=== PATIENT | male | born 1950 | race American Indian/Alaskan Native ===

== ENCOUNTER 2020-10-14 05:19 | Inpatient (IN) | payer MEDICARE, OTHER ==
[2020-10-14] MEDS ORDERED: DEXTROSE 50% IN WATER (25GM) 50 ML SYRINGE IV ONE ×2 (05:30→05:42)
--- NOTE | 2020-10-14 05:44 | Event Note ---
ED Screening Note Date of service: 10/14/20 Time: 05:44 ED Screening Note: This initial assessment/diagnostic orders/clinical plan/treatment(s) is/are subject to change based on patients health status, clinical progression and re- assessment by fellow clinical providers in the ED. Further treatment and workup at subsequent clinical providers discretion. Patient/guardian urged not to elope from the ED as their condition may be serious if not clinically assessed and managed. Patient brought in for altered mental status. Blood glucose of 29. Given D50. Initial orders include: repeat accucheck
--- NOTE | 2020-10-14 06:11 | Emergency Department Report ---
HPI - General Chief Complaint: Altered Mental Status Time Seen by Provider: 10/14/20 06:01 - HPI HPI: This is a 70-year-old -[place] male who presents to the emergency department, via EMS from [facility], with a complaint of altered mental status. This patient is unknown to me and has never been at the facility previously, and EMS is unable to tell us what his normal baseline mental status is. Patient came in prior to my shift starting and was apparently rather drowsy. He was found to have a blood sugar of 29 and given an amp of D50. At the time of my examination the patient is AAO x1, to person only. When asked if he knows where we are right now, the patient says [place] He has a list of past medical history including chronic atrial fibrillation, hypertension, hypothyroidism, diabetes, CHF, previous DVT, urinary retention, BPH, thrombocytopenia. The patient has an indwelling Nuno catheter. ED Past Medical Hx - Past Medical History Hx Hypertension: Yes Hx Congestive Heart Failure: Yes Hx Diabetes: Yes Hx Deep Vein Thrombosis: Yes Additional medical history: Acute respiratory failure with hypoxia, chronic A. Fib, difficulty walking, Hyperthyroidism, generalized muscle weakness, sepsis, V. Tach, BPH, COVID-19, Hypo-osmolality and Hyponatremia, indwelling urinary catheter, repeated falls, thrombocytopenia, chronic UTI's - Surgical History Additional Surgical History: unknown - Social History Smoking Status: Never Smoker Substance Use Type: None ED Review of Systems ROS: Stated complaint: AMS Other details as noted in HPI Comment: Unobtainable due to pts medical conditions Physical Exam - Physical Exam Vital Signs: Vital Signs 10/14/20 10/14/20 10/14/20 05:29 05:31 05:34 Temperature 98.9 F Pulse Rate 92 H 87 Respiratory 26 H 27 H Rate Blood Pressure 120/79 120/79 O2 Sat by Pulse 100 100 Oximetry 10/14/20 10/14/20 05:45 05:57 Temperature Pulse Rate 91 H 88 Respiratory 25 H 19 Rate Blood Pressure 129/81 119/82 O2 Sat by Pulse 94 99 Oximetry Physical Exam: GENERAL: The patient is well-developed well-nourished. HENT: Normocephalic. Atraumatic. Patient has moist mucous membranes. EYES: Extraocular motions are intact. NECK: Supple. Trachea is midline. CHEST/LUNGS: Clear to auscultation. There is no respiratory distress noted. HEART/CARDIOVASCULAR: Regular. There is no tachycardia. There is no murmur. ABDOMEN: Abdomen is soft, nontender. Patient has normal bowel sounds. There is no abdominal distention. SKIN: Skin is warm and dry. 1-2+ pitting edema to the bilateral lower extrem ities and lower abdomen. NEURO: The patient is awake, alert, and cooperative. Confused, AAO x1 to name only. Normal speech. MUSCULOSKELETAL: There is no tenderness or deformity. : Nuno catheter in place. ED Course Vital Signs 10/14/20 10/14/20 10/14/20 05:29 05:31 05:34 Temperature 98.9 F Pulse Rate 92 H 87 Respiratory 26 H 27 H Rate Blood Pressure 120/79 120/79 O2 Sat by Pulse 100 100 Oximetry 10/14/20 10/14/20 05:45 05:57 Temperature Pulse Rate 91 H 88 Respiratory 25 H 19 Rate Blood Pressure 129/81 119/82 O2 Sat by Pulse 94 99 Oximetry ED Medical Decision Making - Lab Data Result diagrams: 10/14/20 07:06 10/14/20 07:06 Lab Results 10/14/20 10/14/20 10/14/20 Range/Units 05:26 06:13 07:06 WBC 8.7 (4.5-11.0) K/mm3 RBC 3.61 L (3.65-5.03) M/mm3 Hgb 11.9 (11.8-15.2) gm/dl Hct 36.4 (35.5-45.6) % MCV 101 H (84-94) fl MCH 33 H (28-32) pg MCHC 33 (32-34) % RDW 18.1 H (13.2-15.2) % Plt Count 161 (140-440) K/mm3 Lymph % (Auto) Manager Utilization Management Grayson % (Auto) Manager Utilization Management Eos % (Auto) Manager Utilization Management Baso % (Auto) Manager Utilization Management Lymph # (Auto) Manager Utilization Management Grayson # (Auto) Manager Utilization Management Eos # (Auto) Manager Utilization Management Baso # (Auto) Manager Utilization Management Seg Neutrophils % Manager Utilization Management Seg Neutrophils # Manager Utilization Management PT (12.2-14.9) Sec. INR (0.87-1.13) Sodium (137-145) mmol/L Potassium (3.6-5.0) mmol/L Chloride (98-107) mmol/L Carbon Dioxide (22-30) mmol/L Anion Gap mmol/L BUN (9-20) mg/dL Creatinine (0.8-1.3) mg/dL Estimated GFR ml/min BUN/Creatinine Ratio % Glucose (75-100) mg/dL POC Glucose 29 L 83 (70-105) mg/dL Calcium (8.4-10.2) mg/dL Total Bilirubin (0.1-1.2) mg/dL AST (5-40) units/L ALT (7-56) units/L Alkaline Phosphatase (35-129) units/L Ammonia (25-60) umol/L Troponin T (0.00-0.029) ng/mL NT-Pro-B Natriuret Pep (0-900) pg/mL Total Protein (6.3-8.2) g/dL Albumin (3.9-5) g/dL Albumin/Globulin Ratio % Triglycerides (2-149) mg/dL Cholesterol (50-199) mg/dL LDL Cholesterol Direct (50-130) mg/dL HDL Cholesterol (40-59) mg/dL Cholesterol/HDL Ratio % TSH (0.270-4.200) mlU/mL Plasma/Serum Alcohol (0-0.07) % 10/14/20 10/14/20 10/14/20 Range/Units 07:06 07:06 07:06 WBC (4.5-11.0) K/mm3 RBC (3.65-5.03) M/mm3 Hgb (11.8-15.2) gm/dl Hct (35.5-45.6) % MCV (84-94) fl MCH (28-32) pg MCHC (32-34) % RDW (13.2-15.2) % Plt Count (140-440) K/mm3 Lymph % (Auto) Grayson % (Auto) Eos % (Auto) Baso % (Auto) Lymph # (Auto) Grayson # (Auto) Eos # (Auto) Baso # (Auto) Seg Neutrophils % Seg Neutrophils # PT 20.7 H (12.2-14.9) Sec. INR 1.73 H (0.87-1.13) Sodium 135 L (137-145) mmol/L Potassium 4.2 (3.6-5.0) mmol/L Chloride 100.1 (98-107) mmol/L Carbon Dioxide 21 L (22-30) mmol/L Anion Gap 18 mmol/L BUN 16 (9-20) mg/dL Creatinine 0.8 (0.8-1.3) mg/dL Estimated GFR > 60 ml/min BUN/Creatinine Ratio 20 % Glucose 75 (75-100) mg/dL POC Glucose (70-105) mg/dL Calcium 8.7 (8.4-10.2) mg/dL Total Bilirubin 4.10 H (0.1-1.2) mg/dL AST 27 (5-40) units/L ALT 9 (7-56) units/L Alkaline Phosphatase 200 H (35-129) units/L Ammonia 25.0 (25-60) umol/L Troponin T 0.053 H (0.00-0.029) ng/mL NT-Pro-B Natriuret Pep (0-900) pg/mL Total Protein 6.3 (6.3-8.2) g/dL Albumin 3.0 L (3.9-5) g/dL Albumin/Globulin Ratio 0.9 % Triglycerides 45 (2-149) mg/dL Cholesterol 122 (50-199) mg/dL LDL Cholesterol Direct 76 (50-130) mg/dL HDL Cholesterol 42 (40-59) mg/dL Cholesterol/HDL Ratio 2.90 % TSH (0.270-4.200) mlU/mL Plasma/Serum Alcohol (0-0.07) % 10/14/20 10/14/20 10/14/20 Range/Units 07:06 07:06 07:06 WBC (4.5-11.0) K/mm3 RBC (3.65-5.03) M/mm3 Hgb (11.8-15.2) gm/dl Hct (35.5-45.6) % MCV (84-94) fl MCH (28-32) pg MCHC (32-34) % RDW (13.2-15.2) % Plt Count (140-440) K/mm3 Lymph % (Auto) Grayson % (Auto) Eos % (Auto) Baso % (Auto) Lymph # (Auto) Grayson # (Auto) Eos # (Auto) Baso # (Auto) Seg Neutrophils % Seg Neutrophils # PT (12.2-14.9) Sec. INR (0.87-1.13) Sodium (137-145) mmol/L Potassium (3.6-5.0) mmol/L Chloride (98-107) mmol/L Carbon Dioxide (22-30) mmol/L Anion Gap mmol/L BUN (9-20) mg/dL Creatinine (0.8-1.3) mg/dL Estimated GFR ml/min BUN/Creatinine Ratio % Glucose (75-100) mg/dL POC Glucose (70-105) mg/dL Calcium (8.4-10.2) mg/dL Total Bilirubin (0.1-1.2) mg/dL AST (5-40) units/L ALT (7-56) units/L Alkaline Phosphatase (35-129) units/L Ammonia (25-60) umol/L Troponin T (0.00-0.029) ng/mL NT-Pro-B Natriuret Pep 56497 H (0-900) pg/mL Total Protein (6.3-8.2) g/dL Albumin (3.9-5) g/dL Albumin/Globulin Ratio % Triglycerides (2-149) mg/dL Cholesterol (50-199) mg/dL LDL Cholesterol Direct (50-130) mg/dL HDL Cholesterol (40-59) mg/dL Cholesterol/HDL Ratio % TSH 11.470 H (0.270-4.200) mlU/mL Plasma/Serum Alcohol < 0.01 (0-0.07) % - EKG Data -: EKG Interpreted by Me EKG shows normal: sinus rhythm, axis (Left axis deviation), intervals, QRS complexes, ST-T waves (Flattening of T waves diffusely) Rate: normal - EKG Data When compared to previous EKG there are: previous EKG unavailable Interpretation: other (Sinus rhythm at 85 bpm, left axis deviation, low voltage, T wave flattening diffusely. No ST elevation AK) - Radiology Data Radiology results: report reviewed, image reviewed interpreted by me: Chest x-ray shows bilateral patchy opacities most consistent with some interstitial edema. No pneumothorax. No widened mediastinum. CT head without contrast INDICATION : Altered mental status TECHNIQUE: Axial imaging performed from the skull apex through the skull base without the use of contrast. All CT examinations performed at this facility utilize dose modulation, iterative reconstruction or weight-based dosing, when appropriate, to reduce radiation dose to as low as reasonably achievable. COMPARISON: None FINDINGS: No acute intracranial hemorrhage or parenchymal abnormality. Diffuse cerebral atrophy with prominent periventricular white matter changes. Ventricles are slightly enlarged in size but appear symmetric. Soft tissues including the orbits appear normal. No acute osseous abnormality. Sinuses and mastoid air cells are clear. IMPRESSION: No acute abnormality. - Medical Decision Making This patient was sent in from his long term facility with concern for some altered mental status. Initially the patient had pretty significant hypoglycemia with a blood sugar of about 30. He was given glucagon by EMS and then D50 upon arrival and the blood sugar went up to about 80. This helped with the patient's alertness, but not with his confusion and/or orientation. CT scan of the head did not show any hemorrhage, large vessel occlusion, or any other acute processes. Chest x-ray shows bilateral patchy opacities concerning for interstitial edema. No widened mediastinum. No pneumothorax. Patient's labs shows hypothyroidism. He has elevated total bilirubin, alk phosphatase, and an INR without known anticoagulation. This gives me some c oncern for liver disease. The patient has an elevated proBNP of about 15,000, that along with the chest x-ray findings and the swelling of his extremities and abdomen, is concerning for CHF. Patient has a slightly elevated troponin. For these reasons patient will be admitted to the hospital for further evaluation and treatment and was accepted for admission by the hospitalist, Dr. Pereira. Critical Care Time: Yes Critical care time in (mins) excluding proc time.: 31 Critical care attestation.: If time is entered above; I have spent that time in minutes in the direct care of this critically ill patient, excluding procedure time. Critical care time was spent on this patient in doing his initial evaluation, multiple reevaluations, ordering and interpretation of labs and imaging, IV Lasix for diuresis, discussions with the hospitalist service. Critical Care Time: 31 minutes ED Disposition Clinical Impression: Encephalopathy, Elevated troponin, Elevated bilirubin CHF (congestive heart failure) Qualifiers: Heart failure type: unspecified Heart failure chronicity: unspecified Qualified Code(s): I50.9 - Heart failure, unspecified Disposition: OP ADMIT IP TO THIS HOSP Is pt being admited?: Yes Condition: Serious Time of Disposition: 09:20
--- NOTE | 2020-10-14 06:39 | XRay Report ---
CHEST 1 VIEW INDICATION / CLINICAL INFORMATION: AMS, volume overload. FINDINGS: SUPPORT DEVICES: None. HEART / MEDIASTINUM: Cardiomegaly. LUNGS / PLEURA: Mild interstitial edema. Bilateral pleural effusions, right greater than left Signer Name: Kaden Yen MD Signed: 10/14/2020 6:35 AM Workstation Name: [id number]
--- NOTE | 2020-10-14 07:06 | Cat Scan Report ---
CT head without contrast INDICATION : Altered mental status TECHNIQUE: Axial imaging performed from the skull apex through the skull base without the use of con trast. All CT examinations performed at this facility utilize dose modulation, iterative reconstruct ion or weight-based dosing, when appropriate, to reduce radiation dose to as low as reasonably achiev able. COMPARISON: None FINDINGS: No acute intracranial hemorrhage or parenchymal abnormality. Diffuse cerebral atrophy with prominent periventricular white matter changes. Ventricles are slightly enlarged in size but appear symmetric. Soft tissues including the orbits appear normal. No acute osseous abnormality. Sinus es and mastoid air cells are clear. IMPRESSION: No acute abnormality. Signer Name: Kaden Yen MD Signed: 10/14/2020 7:02 AM Workstation Name: [id number]
[2020-10-14 08:05] LABS: INR 1.73 (0.87-1.13)
[2020-10-14 08:12] LABS: Alanine Aminotransferase 9 units/L (7-56); BUN/Creatinine Ratio 20; Blood Urea Nitrogen 16 mg/dL (9-20); Calcium 8.7 mg/dL (8.4-10.2); Hemolysis Index 41
[2020-10-14 08:18] LABS: Hematocrit 36.4 % (35.5-45.6); Hemoglobin 11.9 gm/dl (11.8-15.2); Mean Corpuscular HGB Conc 33 % (32-34); Mean Corpuscular Volume 101 fl (84-94); Platelet Count 161 K/mm3 (140-440); Red Blood Count 3.61 M/mm3 (3.65-5.03); Red Cell Distribution Width 18.1 % (13.2-15.2)
[2020-10-14] MEDS ORDERED: FUROSEMIDE 20 MG/2 ML INJ IV ONE (09:21)
[2020-10-14 09:22] LABS: HDL Cholesterol 42 mg/dL (40-59); LDL Cholesterol,Direct 76 mg/dL (50-130)
--- NOTE | 2020-10-14 13:45 | History and Physical Report ---
History of Present Illness Date of examination: 10/14/20 Date of admission: 10/14/20 09:20 Chief complaint: Altered mental status, hypoxia History of present illness: Patient 70-year-old male with a history of dementia, hypothyroidism, atrial fibrillation, congestive heart failure, diabetes, hypertension presents from the nursing facility with a chief complaint of altered mental status hypoxemia and hypotension. Patient has dementia and is usually alert and oriented x2 however today was found to be hypoxic with O2 sats of 88% and also hypotensive with blood pressure 85/62. On presentation to the ED patient was found to also be hypoglycemic at 29. Patient was given D50 and had minimal response and became hypoglycemic several hours later. Upon evaluation in my arrival patient was alert and oriented x2. This is consistent with patient's baseline however he was in the nursing facility. I did speak with the nurse and nursing facility and stated patient has been there since August. There was not a medication sheet sent over during the time however I did go over the medications with the nurse and patient is on albuterol, Eliquis, furosemide, spironolactone, Remeron, levothyroxine metoprolol and glipizide. Initial work-up in ED patient found to have normal sinus rhythm. CT scan of head was obtained was unremarkable and chest x-ray showed mild edema with bilateral pleural effusions. Unable to gain much history from patient patient appears acute and chronically ill. States he is cold. Denies pain. Unable to take gainful history but does able to tell me he is short of breath. His main concern is ' white folks trying to to take me out'. Past History Past Medical History: arrhythmia, anemia, CAD, diabetes, GERD, heart failure, hypertension, hypothyroidism, other (Dementia). denies: acute DC, atrial fib, cancer, COPD, dialysis, DVT, ESRD, hepatitis, HIV/AIDS, hyperthyroidism, hyperlipidemia, liver disease, migraines, PVD, pulmonary embolism, renal failure, stroke, sarcoidosis Past Surgical History: Other (Unknown) Social history: other (Unknown) Family history: other (Unable to obtain) Medications and Allergies Allergies Allergy/AdvReac Type Severity Reaction Status Date / Time No Known Allergies Allergy Verified 10/14/20 06:02 Active Meds: Home medication reviewed over the phone there was no diagnosis doses given. Mentioned in HPI please see HPI. Review of Systems ROS unobtainable: due to mental status Exam - Constitutional Vitals: Temp Pulse Resp BP Pulse Ox 98.9 F 87 16 126/84 96 10/14/20 05:34 10/14/20 07:54 10/14/20 07:54 10/14/20 07:54 10/14/20 07:54 General appearance: Present: mild distress - EENT Eyes: Present: PERRL ENT: hearing intact, clear oral mucosa, poor dentition, no oropharyngeal eryth leonora, no thrush - Respiratory Respiratory: bilateral: diminished, rhonchi - Cardiovascular Rhythm: other (Not irregular at this time.) - Extremities Extremity abnormal: edema (+2 pitting edema), other (Bedbound has range of motion of upper extremities weak on lower extremities.) Peripheral Pulses: abnormal - Abdominal General gastrointestinal: Present: soft, non-tender, other (Slightly distended). Absent: hepatomegaly, splenomegaly Localized gastrointestinal: surgical scar: suprapubic (Suprapubic no tenderness noted. Patient does have dark urine only.) - Rectal Rectal Exam: deferred - Musculoskeletal Musculoskeletal: generalized weakness - Psychiatric Psychiatric: other (Alert and oriented x1 and occasional 2.) - Neurologic Neurologic: CNII-XII intact, no focal deficits, moves all extremities HEART Score - HEART Score History: Moderately suspicious EKG: Non-specific Age: > 65 Risk factors: > 3 risk factors or hx of atherosclerotic disease Troponin: Troponin T 0.053 ng/mL (0.00-0.029) H 10/14/20 07:06 Troponin: 1-3x normal limit HEART Score: 7 Results - Labs CBC & Chem 7: 10/14/20 07:06 10/14/20 07:06 Labs: Laboratory Last Values WBC 8.7 K/mm3 (4.5-11.0) 10/14/20 07:06 RBC 3.61 M/mm3 (3.65-5.03) L 10/14/20 07:06 Hgb 11.9 gm/dl (11.8-15.2) 10/14/20 07:06 Hct 36.4 % (35.5-45.6) 10/14/20 07:06 MCV 101 fl (84-94) H 10/14/20 07:06 MCH 33 pg (28-32) H 10/14/20 07:06 MCHC 33 % (32-34) 10/14/20 07:06 RDW 18.1 % (13.2-15.2) H 10/14/20 07:06 Plt Count 161 K/mm3 (140-440) 10/14/20 07:06 Lymph % (Auto) Chief Physical Therapist 10/14/20 07:06 Parmer % (Auto) Chief Physical Therapist 10/14/20 07:06 Eos % (Auto) Chief Physical Therapist 10/14/20 07:06 Baso % (Auto) Chief Physical Therapist 10/14/20 07:06 Lymph # (Auto) Chief Physical Therapist 10/14/20 07:06 Parmer # (Auto) Chief Physical Therapist 10/14/20 07:06 Eos # (Auto) Chief Physical Therapist 10/14/20 07:06 Baso # (Auto) Chief Physical Therapist 10/14/20 07:06 Seg Neutrophils % Chief Physical Therapist 10/14/20 07:06 Seg Neutrophils # Chief Physical Therapist 10/14/20 07:06 PT 20.7 Sec. (12.2-14.9) H 10/14/20 07:06 INR 1.73 (0.87-1.13) H 10/14/20 07:06 Sodium 135 mmol/L (137-145) L 10/14/20 07:06 Potassium 4.2 mmol/L (3.6-5.0) 10/14/20 07:06 Chloride 100.1 mmol/L (98-107) 10/14/20 07:06 Carbon Dioxide 21 mmol/L (22-30) L 10/14/20 07:06 Anion Gap 18 mmol/L 10/14/20 07:06 BUN 16 mg/dL (9-20) 10/14/20 07:06 Creatinine 0.8 mg/dL (0.8-1.3) 10/14/20 07:06 Estimated GFR > 60 ml/min 10/14/20 07:06 BUN/Creatinine Ratio 20 % 10/14/20 07:06 Glucose 75 mg/dL (75-100) 10/14/20 07:06 POC Glucose 85 mg/dL (70-105) 10/14/20 13:22 Calcium 8.7 mg/dL (8.4-10.2) 10/14/20 07:06 Total Bilirubin 4.10 mg/dL (0.1-1.2) H 10/14/20 07:06 AST 27 units/L (5-40) 10/14/20 07:06 ALT 9 units/L (7-56) 10/14/20 07:06 Alkaline Phosphatase 200 units/L (35-129) H 10/14/20 07:06 Ammonia 25.0 umol/L (25-60) 10/14/20 07:06 Troponin T 0.053 ng/mL (0.00-0.029) H 10/14/20 07:06 NT-Pro-B Natriuret Pep 04742 pg/mL (0-900) H 10/14/20 07:06 Total Protein 6.3 g/dL (6.3-8.2) 10/14/20 07:06 Albumin 3.0 g/dL (3.9-5) L 10/14/20 07:06 Albumin/Globulin Ratio 0.9 % 10/14/20 07:06 Triglycerides 45 mg/dL (2-149) 10/14/20 07:06 Cholesterol 122 mg/dL (50-199) 10/14/20 07:06 LDL Cholesterol Direct 76 mg/dL (50-130) 10/14/20 07:06 HDL Cholesterol 42 mg/dL (40-59) 10/14/20 07:06 Cholesterol/HDL Ratio 2.90 % 10/14/20 07:06 TSH 11.470 mlU/mL (0.270-4.200) H 10/14/20 07:06 Plasma/Serum Alcohol < 0.01 % (0-0.07) 10/14/20 07:06 - Imaging and Cardiology Chest x-ray: report reviewed, image reviewed Assessment and Plan Advance Directives: Yes (Patient not oriented will talk to family.) VTE prophylaxis?: Chemical, Not ordered Contraindication Mechanical VTE Prophylaxis: Contraindicated Reason for no VTE Prophylaxis: Blood coagulation disorde Plan of care discussed with patient/family: Yes - Patient Problems (1) Hypothyroidism (acquired) Current Visit: Yes Status: Acute Plan to address problem: Patient presents with uncontrolled hypothyroidism. Patient has been there for over a month. TSH uncontrolled none therapeutic at 11. Will increase Synthroid to 125 mcg daily. Patient shows signs and symptoms of uncontrolled hyperthyroidism with hypothermia hypotension. (2) CHF (congestive heart failure) Current Visit: Yes Status: Acute Plan to address problem: Acute congestive heart failure. Patient with bilateral pulmonary effusions. BNP elevated. Symptoms of left-sided heart failure on physical exam. Patient new to facility new to us. No recent echocardiogram as we know per myself or nursing facility or family. Will obtain repeat echocardiogram. Continue aggressive diuresis with Lasix IV. We will add spironolactone upon discharge if patient tolerates. At present patient denies chest pain. Just shortness of breath and appears to have some orthopnea as well. (3) Elevated bilirubin Current Visit: Yes Status: Acute Plan to address problem: Elevated alk phos. Patient bili normal. Unsure of exact etiology. Could be shock liver. Will follow up with liver enzymes alk phos again tomorrow. May be lab error as well. (4) Elevated troponin Current Visit: Yes Status: Acute Plan to address problem: Elevated troponin we will continue cardiac isoenzymes. Cardiology consult. Echocardiogram. No acute EKG changes consistent with acute myocardial infarction. (5) Encephalopathy Current Visit: Yes Status: Acute Plan to address problem: Acute metabolic encephalopathy. Multifactorial. Patient hypoxic along with hypoglycemia and uncontrolled hypothyroidism with advanced age and most likely UTI. Urine has not been obtained in ED will obtain urine now. This also could be playing some role will empirically treat him with antibiotics now. Rocephin. Will obtain blood cultures. (6) Diabetes 1.5, managed as type 2 Current Visit: Yes Status: Acute (7) Hypoglycemia Current Visit: Yes Status: Acute Plan to address problem: We will hold oral hypoglycemic medications and treat with sliding scale only for now. Place patient on low concentrated sweet diet carbohydrate diet. (8) SIRS (systemic inflammatory response syndrome) Current Visit: Yes Status: Acute Plan to address problem: Patient hypotensive, altered mental status. Hypoglycemic. Empiric treatment with antibiotics Rocephin. Patient with indwelling Nuno catheter most likely source. (9) Atrial fibrillation Current Visit: Yes Status: Acute Plan to address problem: Patient is regular today. We will continue Eliquis because I have no way of knowing the patient was not previously in A. fib. We will continue Eliquis for now. Further titration of medications when for cardiac work-up has been completed.
[2020-10-14] MEDS ORDERED: ALPRAZolam 0.25 MG TAB PO PRN (13:56)
[2020-10-14] MEDS ORDERED: MORPHINE 2 MG/1 ML INJ IV PRN (13:56)
[2020-10-14] MEDS ORDERED: ONDANSETRON 4 MG/2 ML INJ IV PRN (13:56)
[2020-10-14] MEDS ORDERED: ALBUTEROL 2.5 MG/3 ML NEBU IH PRN (13:56)
[2020-10-14] MEDS ORDERED: NALOXONE 0.4 MG/1 ML INJ IV PRN (13:56)
[2020-10-14] MEDS: APIXABAN 5 MG TAB PO SCH ×2 (15:12→22:19)
[2020-10-14] MEDS: TAMSULOSIN 0.4 MG CAP PO SCH (15:12)
[2020-10-14] MEDS: cefTRIAXone/NS 1 GM/50 ML 1 GM/50 ML BAG IV SCH (15:13)
[2020-10-14] MEDS: POTASSIUM CHLORIDE ER 10 MEQ TAB PO SCH ×2 (15:45→22:19)
[2020-10-14 15:46] LABS: Hematocrit 34.3 % (35.5-45.6); Hemoglobin 11.3 gm/dl (11.8-15.2); Mean Corpuscular HGB Conc 33 % (32-34); Mean Corpuscular Volume 99 fl (84-94); Platelet Count 173 K/mm3 (140-440); Red Blood Count 3.46 M/mm3 (3.65-5.03); Red Cell Distribution Width 18.5 % (13.2-15.2)
[2020-10-14 16:00] LABS: INR 1.59 (0.87-1.13)
[2020-10-14 16:01] LABS: Partial Thromboplastin Time 39.8 Sec. (24.2-36.6)
[2020-10-14] MEDS: INSULIN LISPRO 100 UNIT/ML SUB-Q SCH ×2 (16:23→22:20)
[2020-10-14] MEDS: FUROSEMIDE 20 MG/2 ML INJ IV SCH (17:42)
[2020-10-14] MEDS: FAMOTIDINE 20 MG/2 ML INJ IV SCH (22:19)
[2020-10-14] MEDS: DOCUSATE SODIUM 100 MG CAP PO SCH (22:19)
[2020-10-15] MEDS: FUROSEMIDE 20 MG/2 ML INJ IV SCH ×2 (05:52→17:34)
[2020-10-15] MEDS: LEVOTHYROXINE 125 MCG TAB PO SCH (05:52)
[2020-10-15 06:00] LABS: Basophils % (Auto) 0.9 % (0.0-1.8); Hematocrit 34.6 % (35.5-45.6); Hemoglobin 11.3 gm/dl (11.8-15.2); Lymphocytes % (Auto) 8.6 % (13.4-35.0); Mean Corpuscular HGB Conc 33 % (32-34); Mean Corpuscular Volume 99 fl (84-94); Monocytes % (Auto) 7.5 % (0.0-7.3); Platelet Count 170 K/mm3 (140-440); Red Blood Count 3.51 M/mm3 (3.65-5.03); Red Cell Distribution Width 18.2 % (13.2-15.2)
[2020-10-15 06:25] LABS: Alanine Aminotransferase 8 units/L (7-56); Albumin 3.2 g/dL (3.9-5); BUN/Creatinine Ratio 25; Blood Urea Nitrogen 20 mg/dL (9-20); Calcium 8.2 mg/dL (8.4-10.2); Hemolysis Index 9
[2020-10-15] MEDS: INSULIN LISPRO 100 UNIT/ML SUB-Q SCH ×4 (09:31→21:34)
[2020-10-15] MEDS: POTASSIUM CHLORIDE ER 10 MEQ TAB PO SCH ×2 (09:33→21:34)
[2020-10-15] MEDS: SPIRONOLACTONE 25 MG TAB PO SCH (09:33)
[2020-10-15] MEDS: DOCUSATE SODIUM 100 MG CAP PO SCH ×2 (09:33→21:33)
[2020-10-15] MEDS: APIXABAN 5 MG TAB PO SCH ×2 (09:33→21:34)
[2020-10-15] MEDS: FAMOTIDINE 20 MG/2 ML INJ IV SCH ×2 (09:33→21:33)
[2020-10-15] MEDS: TAMSULOSIN 0.4 MG CAP PO SCH (09:33)
--- NOTE | 2020-10-15 09:51 | Consultation ---
DATE OF CONSULTATION: 10/15/2020 HISTORY OF PRESENT ILLNESS: The patient is a 70-year-old halfway patient, who is confused and unable to give a good history. Right now, he admits to some ankle swelling, but does not describe any other complaints such as chest pain, shortness of breath, palpitations, dizziness, syncope, or claudication. He appears to be bedridden. He has a history of multiple medical problems that include dementia, congestive heart failure, atrial fibrillation, hypothyroidism, hypertension. He has additional medical problems, which can be found in the medical history. He was found to be hypoxic and hypotensive with a blood pressure of 85/62. He had an altered mental status and he was found to have a blood sugar of 29. His past history, cardiac, is unavailable. There are no family members present. He had a chest x-ray in the Emergency Room that showed edema and pleural effusions. PAST MEDICAL HISTORY: Smoking history, unknown. OPERATIONS: Unknown. FAMILY HISTORY: Unknown. Alcohol history, unknown. ALLERGIES: None. REVIEW OF SYSTEMS: No other complaints or medical problems. The patient is disoriented and is unable to give a good history. PHYSICAL EXAMINATION: GENERAL: Well-developed, well-nourished, no acute distress. Alert, cooperative, disoriented. EYES, NOSE AND THROAT: Unremarkable. NECK: Reveals marked JVD. There are no bruits. Supple, no masses. LUNGS: Diminished breath sounds. CARDIAC: Regular rhythm. S4 gallop. Grade II systolic murmur. Suspect S3 gallop. ABDOMEN: Soft, nontender, no masses. Bowel sounds intact. There may be mild ascites. EXTREMITIES: No cyanosis, clubbing. There is 1+ edema. Peripheral pulses are markedly diminished. NEUROLOGIC: Deferred. SKIN: No major rashes or wounds. IMPRESSION: 1. Suspect underlying cardiomyopathy with evidence of congestive heart failure. 2. History of atrial fibrillation and ventricular tachycardia; the patient has been in sinus rhythm in the hospital so far. 3. History of hypertension. 4. History of diabetes, status post hypoglycemia. 5. Dementia. 6. Multiple medical problems as can be seen in the history and physical. PLAN: Conservative therapy for congestive heart failure. Try to obtain previous cardiac records. Echocardiogram. Monitor rhythm. Slowly add PARISH inhibitors and beta blockers. Thank you for this consultation. TID: [id number] RECEIPT: [id number]/KDA
--- NOTE | 2020-10-15 12:18 | Progress Note ---
Assessment and Plan - Patient Problems (1) Hypothyroidism (acquired) Current Visit: Yes Status: Acute (2) CHF (congestive heart failure) Current Visit: Yes Status: Acute Qualifiers: Heart failure type: unspecified Heart failure chronicity: unspecified Qualified Code(s): I50.9 - Heart failure, unspecified (3) Elevated bilirubin Current Visit: Yes Status: Acute (4) Elevated troponin Current Visit: Yes Status: Acute (5) Encephalopathy Current Visit: Yes Status: Acute (6) Diabetes 1.5, managed as type 2 Current Visit: Yes Status: Acute (7) Hypoglycemia Current Visit: Yes Status: Acute (8) SIRS (systemic inflammatory response syndrome) Current Visit: Yes Status: Acute (9) Atrial fibrillation Current Visit: Yes Status: Acute Subjective Date of service: 10/15/20 Principal diagnosis: Acute CHF exacerbation Interval history: Patient 70-year-old male with a history of dementia, hypothyroidism, atrial fibrillation, congestive heart failure, diabetes, hypertension presents from the nursing facility with a chief complaint of altered mental status hypoxemia and hypotension. Patient has dementia and is usually alert and oriented x2 however today was found to be hypoxic with O2 sats of 88% and also hypotensive with blood pressure 85/62. On presentation to the ED patient was found to also be hypoglycemic at 29. Patient was given D50 and had minimal response and became hypoglycemic several hours later. Upon evaluation in my arrival patient was alert and oriented x2. This is consistent with patient's baseline however he was in the nursing facility. I did speak with the nurse and nursing facility and stated patient has been there since August. There was not a medication sheet sent over during the time however I did go over the medications with the nurse and patient is on albuterol, Eliquis, furosemide, spironolactone, Remeron, levothyroxine metoprolol and glipizide. 10/15/2020 -patient doing much better today. Patient is much more alert much more interactive with exam. Appears to be at baseline. Blood glucose also much better controlled no evidence of hypoglycemia. Potassium has remained stable. Clinical patient improved. Objective - Constitutional Vitals: Vital Signs - 12hr 10/15/20 10/15/20 10/15/20 00:49 03:28 06:00 Temperature 97.4 F L Pulse Rate 86 86 Respiratory 16 Rate Blood Pressure 114/74 O2 Sat by Pulse 97 100 Oximetry 10/15/20 10/15/20 10/15/20 07:41 08:03 11:27 Temperature 98.1 F Pulse Rate 87 Respiratory 17 18 Rate Blood Pressure 105/73 O2 Sat by Pulse 100 97 98 Oximetry General appearance: Present: no acute distress - EENT Eyes: PERRL, EOM intact ENT: hearing decreased, poor dentition - Respiratory Respiratory effort: normal Respiratory: bilateral: rales - Cardiovascular Rhythm: other (Remains regular) Extremities: pulses intact, No edema, normal color, Full ROM Extremity abnormal: other (Improving edema.) - Gastrointestinal General gastrointestinal: Present: soft, non-tender, non-distended, normal bowel sounds - Musculoskeletal Musculoskeletal: generalized weakness - Neurologic Neurologic: moves all extremities - Psychiatric Psychiatric: other (Cognitive impairment but much more alert) - Labs CBC & Chem 7: 10/15/20 04:37 10/15/20 04:37 Labs: Abnormal lab results 10/14/20 10/14/20 10/14/20 Range/Units 15:14 15:14 20:25 RBC 3.46 L (3.65-5.03) M/mm3 Hgb 11.3 L (11.8-15.2) gm/dl Hct 34.3 L (35.5-45.6) % MCV 99 H (84-94) fl MCH 33 H (28-32) pg RDW 18.5 H (13.2-15.2) % Lymph % (Auto) (13.4-35.0) % Russell % (Auto) (0.0-7.3) % Seg Neutrophils % (40.0-70.0) % PT 19.4 H (12.2-14.9) Sec. INR 1.59 H (0.87-1.13) APTT 39.8 H (24.2-36.6) Sec. Carbon Dioxide (22-30) mmol/L Glucose (75-100) mg/dL POC Glucose 110 H (70-105) mg/dL Calcium (8.4-10.2) mg/dL Total Bilirubin (0.1-1.2) mg/dL Alkaline Phosphatase (35-129) units/L Total Protein (6.3-8.2) g/dL Albumin (3.9-5) g/dL 10/15/20 10/15/20 10/15/20 Range/Units 04:37 04:37 07:39 RBC 3.51 L (3.65-5.03) M/mm3 Hgb 11.3 L (11.8-15.2) gm/dl Hct 34.6 L (35.5-45.6) % MCV 99 H (84-94) fl MCH (28-32) pg RDW 18.2 H (13.2-15.2) % Lymph % (Auto) 8.6 L (13.4-35.0) % Russell % (Auto) 7.5 H (0.0-7.3) % Seg Neutrophils % 82.0 H (40.0-70.0) % PT (12.2-14.9) Sec. INR (0.87-1.13) APTT (24.2-36.6) Sec. Carbon Dioxide 21 L (22-30) mmol/L Glucose 133 H (75-100) mg/dL POC Glucose 118 H (70-105) mg/dL Calcium 8.2 L (8.4-10.2) mg/dL Total Bilirubin 2.70 H (0.1-1.2) mg/dL Alkaline Phosphatase 195 H (35-129) units/L Total Protein 5.6 L (6.3-8.2) g/dL Albumin 3.2 L (3.9-5) g/dL 10/15/20 Range/Units 12:08 RBC (3.65-5.03) M/mm3 Hgb (11.8-15.2) gm/dl Hct (35.5-45.6) % MCV (84-94) fl MCH (28-32) pg RDW (13.2-15.2) % Lymph % (Auto) (13.4-35.0) % Russell % (Auto) (0.0-7.3) % Seg Neutrophils % (40.0-70.0) % PT (12.2-14.9) Sec. INR (0.87-1.13) APTT (24.2-36.6) Sec. Carbon Dioxide (22-30) mmol/L Glucose (75-100) mg/dL POC Glucose 174 H (70-105) mg/dL Calcium (8.4-10.2) mg/dL Total Bilirubin (0.1-1.2) mg/dL Alkaline Phosphatase (35-129) units/L Total Protein (6.3-8.2) g/dL Albumin (3.9-5) g/dL HEART Score - HEART Score EKG: Non-specific Age: > 65 Risk factors: > 3 risk factors or hx of atherosclerotic disease Troponin: Troponin T 0.053 ng/mL (0.00-0.029) H 10/14/20 07:06 Troponin: 1-3x normal limit
[2020-10-15] MEDS: cefTRIAXone/NS 1 GM/50 ML 1 GM/50 ML BAG IV SCH (14:59)
[2020-10-16] MEDS: FUROSEMIDE 20 MG/2 ML INJ IV SCH ×2 (05:14→18:20)
[2020-10-16] MEDS: LEVOTHYROXINE 125 MCG TAB PO SCH (05:14)
[2020-10-16 05:38] LABS: Hematocrit 34.4 % (35.5-45.6); Hemoglobin 11.3 gm/dl (11.8-15.2); Mean Corpuscular HGB Conc 33 % (32-34); Mean Corpuscular Volume 100 fl (84-94); Platelet Count 166 K/mm3 (140-440); Red Blood Count 3.44 M/mm3 (3.65-5.03); Red Cell Distribution Width 18.5 % (13.2-15.2)
[2020-10-16] MEDS: INSULIN LISPRO 100 UNIT/ML SUB-Q SCH ×4 (07:30→22:38)
[2020-10-16 08:24] LABS: Alanine Aminotransferase 7 units/L (7-56); Albumin 3.2 g/dL (3.9-5); BUN/Creatinine Ratio 21; Blood Urea Nitrogen 19 mg/dL (9-20); Calcium 8.7 mg/dL (8.4-10.2); Hemolysis Index 1
[2020-10-16] MEDS: APIXABAN 5 MG TAB PO SCH ×2 (10:10→22:37)
[2020-10-16] MEDS: DOCUSATE SODIUM 100 MG CAP PO SCH ×2 (10:11→22:37)
[2020-10-16] MEDS: TAMSULOSIN 0.4 MG CAP PO SCH (10:11)
[2020-10-16] MEDS: SPIRONOLACTONE 25 MG TAB PO SCH (10:11)
[2020-10-16] MEDS: POTASSIUM CHLORIDE ER 10 MEQ TAB PO SCH ×2 (10:11→22:37)
[2020-10-16] MEDS: FAMOTIDINE 20 MG/2 ML INJ IV SCH ×2 (10:11→22:38)
--- NOTE | 2020-10-16 10:57 | Progress Note ---
Assessment and Plan - Patient Problems (1) Atrial fibrillation Current Visit: Yes Status: Acute (2) CHF (congestive heart failure) Current Visit: Yes Status: Acute Qualifiers: Heart failure type: unspecified Heart failure chronicity: unspecified Qualified Code(s): I50.9 - Heart failure, unspecified (3) Diabetes 1.5, managed as type 2 Current Visit: Yes Status: Acute (4) Elevated bilirubin Current Visit: Yes Status: Acute Subjective Date of service: 10/16/20 Principal diagnosis: Acute CHF exacerbation Interval history: NO C/O,,,CONFUSED Objective Vital Signs Temp Pulse Resp BP Pulse Ox 10/16/20 09:22 96 10/16/20 07:35 98.3 F 86 18 101/68 100 10/16/20 06:00 85 10/16/20 03:41 98.2 F 94 H 18 109/72 98 10/15/20 23:18 97.4 F L 53 L 18 111/73 98 10/15/20 22:00 97 H 10/15/20 21:50 100 10/15/20 20:37 20 98 10/15/20 19:20 97.4 F L 96 H 19 110/72 100 10/15/20 16:11 98.0 F 98 H 18 114/72 99 10/15/20 14:00 85 10/15/20 12:09 98.0 F 97 H 18 113/74 93 10/15/20 11:27 18 98 - Physical Examination General: No Apparent Distress Neck: Positive: JVD/HJR Cardiac: Positive: Irregularly Regular Lungs: Positive: Rhonchi Abdomen: Positive: Soft, Tender (NO) Extremities: Present: +1 Edema, Other (DIM. PULSES) - Labs and Meds Cardiac Enzymes 10/16/20 Range/Units 07:44 AST 17 (5-40) units/L CBC 10/16/20 Range/Units 04:29 WBC 7.5 (4.5-11.0) K/mm3 RBC 3.44 L (3.65-5.03) M/mm3 Hgb 11.3 L (11.8-15.2) gm/dl Hct 34.4 L (35.5-45.6) % Plt Count 166 (140-440) K/mm3 Comprehensive Metabolic Panel 10/16/20 Range/Units 07:44 Sodium 139 (137-145) mmol/L Potassium 4.0 (3.6-5.0) mmol/L Chloride 101.1 (98-107) mmol/L Carbon Dioxide 31 H D (22-30) mmol/L BUN 19 (9-20) mg/dL Creatinine 0.9 (0.8-1.3) mg/dL Glucose 109 H (75-100) mg/dL Calcium 8.7 (8.4-10.2) mg/dL AST 17 (5-40) units/L ALT 7 (7-56) units/L Alkaline Phosphatase 178 H (35-129) units/L Total Protein 5.9 L (6.3-8.2) g/dL Albumin 3.2 L (3.9-5) g/dL
--- NOTE | 2020-10-16 12:25 | Progress Note ---
Assessment and Plan - Patient Problems (1) Hypothyroidism (acquired) Current Visit: Yes Status: Acute Plan to address problem: Patient presents with uncontrolled hypothyroidism. Patient has been there for over a month. TSH uncontrolled none therapeutic at 11. Will increase Synthroid to 125 mcg daily. Patient shows signs and symptoms of uncontrolled hyperthyroidism with hypothermia hypotension. Stable continue Synthroid. (2) CHF (congestive heart failure) Current Visit: Yes Status: Acute Qualifiers: Heart failure type: unspecified Heart failure chronicity: unspecified Qualified Code(s): I50.9 - Heart failure, unspecified Plan to address problem: Acute congestive heart failure. Patient with bilateral pulmonary effusions. BNP elevated. Symptoms of left-sided heart failure on physical exam. Patient new to facility new to us. No recent echocardiogram as we know per myself or nursing facility or family. Will obtain repeat echocardiogram. Continue agg ressive diuresis with Lasix IV. We will add spironolactone upon discharge if patient tolerates. At present patient denies chest pain. Just shortness of breath and appears to have some orthopnea as well. Patient has marked improvement of CHF. Decreased lower extremity edema decreased rhonchi. Patient much more alert. Anticipated discharge in a.m. I did speak with daughter and patient's last ejection fraction was 15%. (3) Elevated bilirubin Current Visit: Yes Status: Acute Plan to address problem: Elevated alk phos. Patient bili normal. Unsure of exact etiology. Could be shock liver. Will follow up with liver enzymes alk phos again tomorrow. May be lab error as well. Patient was diagnosed with a liver problem at [place] [facility] office. Also treated in [place] by GI for unknown liver diagnosis. Patient daughter stated is been worked up in this marker has been elevated in recent past. Will attempt to obtain old records from the nursing facility as per etiology (4) Elevated troponin Current Visit: Yes Status: Acute Plan to address problem: Elevated troponin we will continue cardiac isoenzymes. Cardiology consult. Echocardiogram. No acute EKG changes consistent with acute myocardial infarction. (5) Encephalopathy Current Visit: Yes Status: Acute Plan to address problem: Acute metabolic encephalopathy. Multifactorial. Patient hypoxic along with hypoglycemia and uncontrolled hypothyroidism with advanced age and most likely UTI. Urine has not been obtained in ED will obtain urine now. This also could be playing some role will empirically treat him with antibiotics now. Rocephin. Will obtain blood cultures. Most likely secondary to sepsis and hypoglycemia as mentioned before resolved now. (6) Diabetes 1.5, managed as type 2 Current Visit: Yes Status: Acute Plan to address problem: No further episodes of hypoglycemia anticipated discharge in a.m. (7) Hypoglycemia Current Visit: Yes Status: Acute Plan to address problem: We will hold oral hypoglycemic medications and treat with sliding scale only for now. Place patient on low concentrated sweet diet carbohydrate diet. (8) SIRS (systemic inflammatory response syndrome) Current Visit: Yes Status: Acute Plan to address problem: Patient hypotensive, altered mental status. Hypoglycemic. Empiric treatment with antibiotics Rocephin. Patient with indwelling Nuno catheter most likely source. (9) Atrial fibrillation Current Visit: Yes Status: Acute Plan to address problem: Patient has remained regular could be on chronic Eliquis for blood clots. Continue Eliquis no evidence of bleeding. Subjective Date of service: 10/16/20 Principal diagnosis: Acute CHF exacerbation Interval history: Patient 70-year-old male with a history of dementia, hypothyroidism, atrial fibrillation, congestive heart failure, diabetes, hypertension presents from the nursing facility with a chief complaint of altered mental status hypoxemia and hypotension. Patient has dementia and is usually alert and oriented x2 however today was found to be hypoxic with O2 sats of 88% and also hypotensive with blood pressure 85/62. On presentation to the ED patient was found to also be hypoglycemic at 29. Patient was given D50 and had minimal response and became hypoglycemic several hours later. Upon evaluation in my arrival patient was alert and oriented x2. This is consistent with patient's baseline however he was in the nursing facility. I did speak with the nurse and nursing facility and stated patient has been there since August. There was not a medication sheet sent over during the time however I did go over the medications with the nurse a nd patient is on albuterol, Eliquis, furosemide, spironolactone, Remeron, levothyroxine metoprolol and glipizide. 10/15/2020 -patient doing much better today. Patient is much more alert much more interactive with exam. Appears to be at baseline. Blood glucose also much better controlled no evidence of hypoglycemia. Potassium has remained stable. Clinical patient improved. 10/16/2020. Patient much more alert than admission. Able to feed himself. Alert oriented x3. Does have baseline cognitive impairment however I did speak to the daughter and she is aware of this. She was able to see patient on face time and he is back at his baseline. Objective - Constitutional Vitals: Vital Signs - 12hr 10/16/20 10/16/20 10/16/20 03:41 06:00 07:35 Temperature 98.2 F 98.3 F Pulse Rate 94 H 85 86 Respiratory 18 18 Rate Blood Pressure 109/72 101/68 O2 Sat by Pulse 98 100 Oximetry 10/16/20 09:22 Temperature Pulse Rate Respiratory Rate Blood Pressure O2 Sat by Pulse 96 Oximetry General appearance: Present: no acute distress - EENT Eyes: PERRL, EOM intact ENT: clear oral mucosa, hearing decreased - Respiratory Respiratory: bilateral: diminished, negative: rhonchi (Significant improvement of rhonchi) - Cardiovascular Rhythm: regular Heart Sounds: Present: S1 & S2. Absent: gallop, rub Extremities: pulses intact, Full ROM Extremity abnormal: edema, other (Significant improvement in lower extremity edema) - Gastrointestinal General gastrointestinal: Present: soft, non-tender, non-distended, normal bowel sounds - Musculoskeletal Musculoskeletal: generalized weakness - Neurologic Neurologic: moves all extremities - Psychiatric Psychiatric: other (Cognitive impairment) - Labs CBC & Chem 7: 10/16/20 04:29 10/16/20 07:44 Labs: Abnormal lab results 10/15/20 10/15/20 10/16/20 Range/Units 16:09 20:32 04:29 RBC 3.44 L (3.65-5.03) M/mm3 Hgb 11.3 L (11.8-15.2) gm/dl Hct 34.4 L (35.5-45.6) % MCV 100 H (84-94) fl MCH 33 H (28-32) pg RDW 18.5 H (13.2-15.2) % Carbon Dioxide (22-30) mmol/L Glucose (75-100) mg/dL POC Glucose 130 H 128 H (70-105) mg/dL Total Bilirubin (0.1-1.2) mg/dL Alkaline Phosphatase (35-129) units/L Total Protein (6.3-8.2) g/dL Albumin (3.9-5) g/dL 10/16/20 10/16/20 Range/Units 07:44 11:53 RBC (3.65-5.03) M/mm3 Hgb (11.8-15.2) gm/dl Hct (35.5-45.6) % MCV (84-94) fl MCH (28-32) pg RDW (13.2-15.2) % Carbon Dioxide 31 H D (22-30) mmol/L Glucose 109 H (75-100) mg/dL POC Glucose 171 H (70-105) mg/dL Total Bilirubin 2.50 H (0.1-1.2) mg/dL Alkaline Phosphatase 178 H (35-129) units/L Total Protein 5.9 L (6.3-8.2) g/dL Albumin 3.2 L (3.9-5) g/dL HEART Score - HEART Score EKG: Non-specific Age: > 65 Risk factors: > 3 risk factors or hx of atherosclerotic disease Troponin: Troponin T 0.053 ng/mL (0.00-0.029) H 10/14/20 07:06 Troponin: 1-3x normal limit
[2020-10-16] MEDS: cefTRIAXone/NS 1 GM/50 ML 1 GM/50 ML BAG IV SCH (14:01)
[2020-10-17] MEDS: LEVOTHYROXINE 125 MCG TAB PO SCH (05:03)
[2020-10-17] MEDS: FUROSEMIDE 20 MG/2 ML INJ IV SCH ×2 (05:10→17:27)
[2020-10-17] MEDS: INSULIN LISPRO 100 UNIT/ML SUB-Q SCH ×4 (07:30→22:24)
--- NOTE | 2020-10-17 09:12 | Progress Note ---
Assessment and Plan - Patient Problems (1) Hypothyroidism (acquired) Current Visit: Yes Status: Acute Plan to address problem: Patient presents with uncontrolled hypothyroidism. Patient has been there for over a month. TSH uncontrolled none therapeutic at 11. Will increase Synthroid to 125 mcg daily. Patient shows signs and symptoms of uncontrolled hyperthyroidism with hypothermia hypotension. Stable continue Synthroid. -Discharge Synthroid 125 mcg daily. (2) CHF (congestive heart failure) Current Visit: Yes Status: Acute Qualifiers: Heart failure type: unspecified Heart failure chronicity: unspecified Qualified Code(s): I50.9 - Heart failure, unspecified Plan to address problem: Acute congestive heart failure. Patient with bilateral pulmonary effusions. BNP elevated. Symptoms of left-sided heart failure on physical exam. Patient new to facility new to us. No recent echocardiogram as we know per myself or nursing facility or family. Will obtain repeat echocardiogram. Continue aggressive diuresis with Lasix IV. We will add spironolactone upon discharge if patient tolerates. At present patient denies chest pain. Just shortness of breath and appears to have some orthopnea as well. Patient has marked improvement of CHF. Decreased lower extremity edema decreased rhonchi. Patient much more alert. . I did speak with daughter and patient's last ejection fraction was 15%. Patient has had marked improvement on congestive heart failure. Echocardiogram results to be available today. Will diuresis for 1 more day. Anticipated discharge in a.m. Patient may go back to long-term. Results echocardiogram pending (3) Elevated bilirubin Current Visit: Yes Status: Acute Plan to address problem: Elevated alk phos. Patient bili normal. Unsure of exact etiology. Could be shock liver. Will follow up with liver enzymes alk phos again tomorrow. May be lab error as well. Patient was diagnosed with a liver problem at [facility] physician office. Also treated in [facility] by GI for unknown liver diagnosis. Patient daughter stated is been worked up in this marker has been elevated in recent past. Will attempt to obtain old records from the nursing facility as per etiology (4) Elevated troponin Current Visit: Yes Status: Acute Plan to address problem: Elevated troponin we will continue cardiac isoenzymes. Cardiology consult. Echocardiogram. No acute EKG changes consistent with acute myocardial infarction. (5) Encephalopathy Current Visit: Yes Status: Acute Plan to address problem: Acute metabolic encephalopathy. Multifactorial. Patient hypoxic along with hypoglycemia and uncontrolled hypothyroidism with advanced age and most likely UTI. Urine has not been obtained in ED will obtain urine now. This also could be playing some role will empirically treat him with antibiotics now. Rocephin. Will obtain blood cultures. Most likely secondary to sepsis and hypoglycemia as mentioned before resolved now. (6) Diabetes 1.5, managed as type 2 Current Visit: Yes Status: Acute Plan to address problem: No further episodes of hypoglycemia anticipated discharge in a.m. (7) Hypoglycemia Current Visit: Yes Status: Acute Plan to address problem: We will hold oral hypoglycemic medications and treat with sliding scale only for now. Place patient on low concentrated sweet diet carbohydrate diet. (8) SIRS (systemic inflammatory response syndrome) Current Visit: Yes Status: Acute Plan to address problem: Patient hypotensive, altered mental status. Hypoglycemic. Empiric treatment with antibiotics Rocephin. Patient with indwelling Nuno catheter most likely source. Urine not obtained upon admission. Discontinue antibiotics today. (9) Atrial fibrillation Current Visit: Yes Status: Acute Plan to address problem: Patient has been regular since admission. Potentially Eliquis could be secondary to chronic clotting. We will continue Eliquis. No medical records have been obtained today. Transfer back to [facility] on Eliquis. No evidence of bleeding. Subjective Date of service: 10/17/20 Principal diagnosis: Acute CHF exacerbation Interval history: Patient 70-year-old male with a history of dementia, hypothyroidism, atrial fibrillation, congestive heart failure, diabetes, hypertension presents from the nursing facility with a chief complaint of altered mental status hypoxemia and hypotension. Patient has dementia and is usually alert and oriented x2 however today was found to be hypoxic with O2 sats of 88% and also hypotensive with blood pressure 85/62. On presentation to the ED patient was found to also be hypoglycemic at 29. Patient was given D50 and had minimal response and became hypoglycemic several hours later. Upon evaluation in my arrival patient was alert and oriented x2. This is consistent with patient's baseline however he was in the nursing facility. I did speak with the nurse and nursing facility an d stated patient has been there since August. There was not a medication sheet sent over during the time however I did go over the medications with the nurse and patient is on albuterol, Eliquis, furosemide, spironolactone, Remeron, levothyroxine metoprolol and glipizide. 10/15/2020 -patient doing much better today. Patient is much more alert much more interactive with exam. Appears to be at baseline. Blood glucose also much better controlled no evidence of hypoglycemia. Potassium has remained stable. Clinical patient improved. 10/16/2020. Patient much more alert than admission. Able to feed himself. Alert oriented x3. Does have baseline cognitive impairment however I did speak to the daughter and she is aware of this. She was able to see patient on face time and he is back at his baseline. 10/17/2020. Spoke with patient's daughter again today. Patient cognition back at baseline. Patient also is oxygenating better. Continues to have few crackles at bases. Oxygenation improved. Objective - Constitutional Vitals: Vital Signs - 12hr 10/16/20 10/17/20 10/17/20 23:08 02:09 03:26 Temperature 97.9 F 97.4 F L Pulse Rate 91 H 96 H 89 Respiratory 18 18 Rate Blood Pressure 116/71 114/78 O2 Sat by Pulse 99 90 Oximetry 10/17/20 07:38 Temperature 98.4 F Pulse Rate 90 Respiratory 16 Rate Blood Pressure 108/73 O2 Sat by Pulse 96 Oximetry General appearance: Present: no acute distress - EENT Eyes: PERRL, EOM intact ENT: dentition normal - Neck Neck: supple, normal ROM - Respiratory Respiratory: bilateral: rhonchi (Much improved) - Cardiovascular Rhythm: regular Extremity abnormal: edema - Gastrointestinal General gastrointestinal: Present: soft, non-tender, non-distended, normal bowel sounds - Musculoskeletal Musculoskeletal: generalized weakness - Neurologic Neurologic: moves all extremities - Psychiatric Psychiatric: other (Cognitive impairment at baseline dementia) - Labs CBC & Chem 7: 10/16/20 04:29 10/16/20 07:44 Labs: Abnormal lab results 10/16/20 Range/Units 11:53 POC Glucose 171 H (70-105) mg/dL HEART Score - HEART Score EKG: Non-specific Age: > 65 Risk factors: > 3 risk factors or hx of atherosclerotic disease Troponin: Troponin T 0.053 ng/mL (0.00-0.029) H 10/14/20 07:06 Troponin: 1-3x normal limit
[2020-10-17] MEDS: TAMSULOSIN 0.4 MG CAP PO SCH (10:02)
[2020-10-17] MEDS: SPIRONOLACTONE 25 MG TAB PO SCH (10:02)
[2020-10-17] MEDS: APIXABAN 5 MG TAB PO SCH ×2 (10:02→22:27)
[2020-10-17] MEDS: POTASSIUM CHLORIDE ER 10 MEQ TAB PO SCH ×2 (10:03→22:27)
[2020-10-17] MEDS: FAMOTIDINE 20 MG/2 ML INJ IV SCH ×2 (10:03→22:27)
[2020-10-17] MEDS: DOCUSATE SODIUM 100 MG CAP PO SCH ×2 (10:03→22:26)
[2020-10-17] MEDS: ACETAMINOPHEN 325 MG TAB PO PRN (10:11)
--- NOTE | 2020-10-17 10:55 | Progress Note ---
Assessment and Plan - Patient Problems (1) Atrial fibrillation Current Visit: Yes Status: Acute (2) CHF (congestive heart failure) Current Visit: Yes Status: Acute Qualifiers: Heart failure type: unspecified Heart failure chronicity: unspecified Qualified Code(s): I50.9 - Heart failure, unspecified (3) Diabetes 1.5, managed as type 2 Current Visit: Yes Status: Acute (4) Elevated bilirubin Current Visit: Yes Status: Acute Subjective Date of service: 10/17/20 Principal diagnosis: Acute CHF exacerbation Interval history: NO C/O,,,CONFUSED Objective Vital Signs Temp Pulse Resp BP Pulse Ox 10/17/20 07:38 98.4 F 90 16 108/73 96 10/17/20 03:26 97.4 F L 89 18 114/78 90 10/17/20 02:09 96 H 10/16/20 23:08 97.9 F 91 H 18 116/71 99 10/16/20 20:46 95 10/16/20 19:16 97.7 F 99 H 18 98/64 93 10/16/20 16:15 97.5 F L 100 H 17 107/70 98 10/16/20 15:17 86 10/16/20 11:00 18 98 - Physical Examination General: No Apparent Distress Neck: Positive: JVD/HJR Cardiac: Positive: Reg Rate and Rhythm Lungs: Positive: Decreased Breath Sounds Abdomen: Positive: Soft, Tender (NO) Extremities: Present: +1 Edema, Other (DIM. PULSES)
[2020-10-18 05:09] LABS: Hemoglobin 10.8 gm/dl (11.8-15.2); Mean Corpuscular HGB Conc 34 % (32-34); Mean Corpuscular Volume 98 fl (84-94); Platelet Count 164 K/mm3 (140-440); Red Blood Count 3.26 M/mm3 (3.65-5.03); Red Cell Distribution Width 17.6 % (13.2-15.2)
[2020-10-18] MEDS: FUROSEMIDE 20 MG/2 ML INJ IV SCH ×2 (05:21→17:41)
[2020-10-18] MEDS: LEVOTHYROXINE 125 MCG TAB PO SCH (05:21)
[2020-10-18] MEDS: TAMSULOSIN 0.4 MG CAP PO SCH (09:10)
[2020-10-18] MEDS: APIXABAN 5 MG TAB PO SCH ×2 (09:10→22:00)
[2020-10-18] MEDS: DOCUSATE SODIUM 100 MG CAP PO SCH ×2 (09:11→22:01)
[2020-10-18] MEDS: FAMOTIDINE 20 MG/2 ML INJ IV SCH (09:11)
[2020-10-18] MEDS: SPIRONOLACTONE 25 MG TAB PO SCH (09:13)
[2020-10-18] MEDS: INSULIN LISPRO 100 UNIT/ML SUB-Q SCH ×4 (09:13→21:31)
[2020-10-18] MEDS: carvediloL 6.25 MG TAB PO SCH ×2 (09:18→22:00)
[2020-10-18] MEDS: ACETAMINOPHEN 325 MG TAB PO PRN (09:18)
--- NOTE | 2020-10-18 09:34 | Progress Note ---
Assessment and Plan Assessment and plan: Hypothyroidism Acute systolic heart failure exacerbation/biventricular heart failure Atrial fibrillation Elevated bilirubin Elevated troponin Metabolic encephalopathy. Diabetes mellitus type 2 10/18/2020. Echocardiogram reveals right ventricular systolic function is severely reduced. LVEF 10 to 15%. Paradoxical septal motion consistent with conduction abnormality. Flattened septum consistent with right ventricular pressure and volume overload. History Interval history: No new issues overnight. Hospitalist Physical - Constitutional Vitals: Temp Pulse Resp BP Pulse Ox 98.2 F 86 18 124/74 92 10/18/20 08:29 10/18/20 08:29 10/18/20 08:29 10/18/20 08:29 10/18/20 08:49 General appearance: Present: no acute distress - EENT Eyes: Present: PERRL, EOM intact ENT: hearing intact, clear oral mucosa, dentition normal - Neck Neck: Present: supple, normal ROM - Respiratory Respiratory effort: normal Respiratory: bilateral: CTA - Cardiovascular Rhythm: regular Heart Sounds: Present: S1 & S2. Absent: gallop, rub - Extremities Extremities: no ischemia, No edema, Full ROM - Abdominal General gastrointestinal: soft, non-tender, non-distended, normal bowel sounds - Integumentary Integumentary: Present: clear, warm, dry - Neurologic Neurologic: CNII-XII intact, moves all extremities HEART Score - HEART Score EKG: Non-specific Age: > 65 Risk factors: > 3 risk factors or hx of atherosclerotic disease Troponin: Troponin T 0.053 ng/mL (0.00-0.029) H 10/14/20 07:06 Troponin: 1-3x normal limit Results - Labs CBC & Chem 7: 10/18/20 04:22 10/17/20 10:40 Labs: Laboratory Last Values WBC 6.5 K/mm3 (4.5-11.0) 10/18/20 04:22 RBC 3.26 M/mm3 (3.65-5.03) L 10/18/20 04:22 Hgb 10.8 gm/dl (11.8-15.2) L 10/18/20 04:22 Hct 32.0 % (35.5-45.6) L 10/18/20 04:22 MCV 98 fl (84-94) H 10/18/20 04:22 MCH 33 pg (28-32) H 10/18/20 04:22 MCHC 34 % (32-34) 10/18/20 04:22 RDW 17.6 % (13.2-15.2) H 10/18/20 04:22 Plt Count 164 K/mm3 (140-440) 10/18/20 04:22 Lymph % (Auto) 8.6 % (13.4-35.0) L 10/15/20 04:37 [place] % (Auto) 7.5 % (0.0-7.3) H 10/15/20 04:37 Eos % (Auto) 1.0 % (0.0-4.3) 10/15/20 04:37 Baso % (Auto) 0.9 % (0.0-1.8) 10/15/20 04:37 Lymph # (Auto) Assistant Account Manager 10/14/20 07:06 [place] # (Auto) Assistant Account Manager 10/14/20 07:06 Eos # (Auto) Assistant Account Manager 10/14/20 07:06 Baso # (Auto) Assistant Account Manager 10/14/20 07:06 Seg Neutrophils % 82.0 % (40.0-70.0) H 10/15/20 04:37 Seg Neutrophils # 5.8 K/mm3 (1.8-7.7) 10/15/20 04:37 PT 19.4 Sec. (12.2-14.9) H 10/14/20 15:14 INR 1.59 (0.87-1.13) H 10/14/20 15:14 APTT 39.8 Sec. (24.2-36.6) H 10/14/20 15:14 Sodium 139 mmol/L (137-145) 10/16/20 07:44 Potassium 4.0 mmol/L (3.6-5.0) 10/16/20 07:44 Chloride 101.1 mmol/L (98-107) 10/16/20 07:44 Carbon Dioxide 31 mmol/L (22-30) H D 10/16/20 07:44 Anion Gap 11 mmol/L 10/16/20 07:44 BUN 19 mg/dL (9-20) 10/16/20 07:44 Creatinine 0.8 mg/dL (0.8-1.3) 10/17/20 10:40 Estimated GFR > 60 ml/min 10/17/20 10:40 BUN/Creatinine Ratio 21 % 10/16/20 07:44 Glucose 109 mg/dL (75-100) H 10/16/20 07:44 POC Glucose 90 mg/dL (70-105) 10/18/20 08:29 Calcium 8.7 mg/dL (8.4-10.2) 10/16/20 07:44 Total Bilirubin 2.50 mg/dL (0.1-1.2) H 10/16/20 07:44 AST 17 units/L (5-40) 10/16/20 07:44 ALT 7 units/L (7-56) 10/16/20 07:44 Alkaline Phosphatase 178 units/L (35-129) H 10/16/20 07:44 Ammonia 25.0 umol/L (25-60) 10/14/20 07:06 Troponin T 0.053 ng/mL (0.00-0.029) H 10/14/20 07:06 NT-Pro-B Natriuret Pep 25476 pg/mL (0-900) H 10/14/20 07:06 Total Protein 5.9 g/dL (6.3-8.2) L 10/16/20 07:44 Albumin 3.2 g/dL (3.9-5) L 10/16/20 07:44 Albumin/Globulin Ratio 1.2 % 10/16/20 07:44 Triglycerides 45 mg/dL (2-149) 10/14/20 07:06 Cholesterol 122 mg/dL (50-199) 10/14/20 07:06 LDL Cholesterol Direct 76 mg/dL (50-130) 10/14/20 07:06 HDL Cholesterol 42 mg/dL (40-59) 10/14/20 07:06 Cholesterol/HDL Ratio 2.90 % 10/14/20 07:06 TSH 11.470 mlU/mL (0.270-4.200) H 10/14/20 07:06 Plasma/Serum Alcohol < 0.01 % (0-0.07) 10/14/20 07:06 Coronavirus (PCR) Negative (Negative) 10/15/20 11:45 Microbiology: Microbiology 10/14/20 15:14 Peripheral/Venous Blood Culture - Preliminary NO GROWTH AFTER 72 HOURS 10/14/20 15:14 Peripheral/Venous Blood Culture - Preliminary NO GROWTH AFTER 72 HOURS Nuno/IV: Voiding Method Indwelling Catheter Active Medications - Current Medications Current Medications: Generic Name Dose Route Start Last Admin Trade Name Freq PRN Reason Stop Dose Admin Acetaminophen 650 mg 10/14/20 13:00 10/18/20 09:18 Acetaminophen 325 Mg Tab PO 650 mg Q4H PRN Administration Pain MILD(1-3)/Fever >100.5/MARTIN Albuterol 2.5 mg 10/14/20 13:56 Albuterol 2.5 Mg/3 Ml Nebu IH Q4HRT PRN Shortness Of Breath Alprazolam 0.125 mg 10/14/20 13:56 Alprazolam 0.25 Mg Tab PO Q8H PRN Agitation Apixaban 5 mg 10/14/20 15:00 10/18/20 09:10 Apixaban 5 Mg Tab PO 5 mg Q12HR MARTÍN Administration Protocol Carvedilol 6.25 mg 10/18/20 10:00 10/18/20 09:18 Carvedilol 6.25 Mg Tab PO 6.25 mg BID MARTÍN Administration Dextrose 50 ml 10/14/20 13:56 Dextrose 50% In Water (25gm) 50 Ml Syringe IV Q30MIN PRN Hypoglycemia Protocol Docusate Sodium 100 mg 10/14/20 22:00 10/18/20 09:11 Docusate Sodium 100 Mg Cap PO 100 mg BID MARTÍN Administration Famotidine 20 mg 10/14/20 22:00 10/18/20 09:11 Famotidine 20 Mg/2 Ml Inj IV 20 mg BID MARTÍN Administration Furosemide 20 mg 10/14/20 18:00 10/18/20 05:21 Furosemide 20 Mg/2 Ml Inj IV 20 mg BID@0600,1800 MARTÍN Administration Insulin Human Lispro 0 unit 10/14/20 16:30 10/18/20 09:13 Insulin Lispro 100 Unit/Ml SUB-Q Not Given ACHS MARTÍN Protocol Levothyroxine Sodium 125 mcg 10/15/20 06:00 10/18/20 05:21 Levothyroxine 125 Mcg Tab PO 125 mcg DAILY@0600 MARTÍN Administration Morphine Sulfate 2 mg 10/14/20 13:56 Morphine 2 Mg/1 Ml Inj IV Q4H PRN Pain, Moderate (4-6) Naloxone HCl 0.1 mg 10/14/20 13:56 Naloxone 0.4 Mg/1 Ml Inj IV Q2MIN PRN Res Rate </= 8 or 02 SAT < 92% Ondansetron HCl 4 mg 10/14/20 13:56 Ondansetron 4 Mg/2 Ml Inj IV Q8H PRN Nausea And Vomiting Oxycodone/Acetaminophen 1 tab 10/14/20 13:56 Oxycodone /Acetaminophen 5-325mg Tab PO Q6H PRN Pain, Moderate (4-6) Sodium Chloride 10 ml 10/14/20 14:00 10/18/20 09:12 Sodium Chloride 0.9% 10 Ml Flush Syringe IV 10 ml BID MARTÍN Administration Sodium Chloride 10 ml 10/14/20 13:56 10/17/20 17:27 Sodium Chloride 0.9% 10 Ml Flush Syringe IV 10 ml PRN PRN Administration LINE FLUSH Spironolactone 25 mg 10/18/20 10:00 10/18/20 09:13 Spironolactone 25 Mg Tab PO 25 mg QDAY MARTÍN Administration Tamsulosin HCl 0.4 mg 10/14/20 15:00 10/18/20 09:10 Tamsulosin 0.4 Mg Cap PO 0.4 mg QDAY MARTÍN Administration
--- NOTE | 2020-10-18 10:33 | Progress Note ---
Assessment and Plan - Patient Problems (1) CHF (congestive heart failure) Current Visit: Yes Status: Acute Qualifiers: Qualified Code(s): I50.9 - Heart failure, unspecified Plan to address problem: Echocardiogram this admission demonstrates a 4 chamber dilated cardiomyopathy, ejection fraction 10-15%. There was severe TR and severe pulmonary hypertension, RSVP 71 mmHg. 07/2020 outpatient Lexiscan thallium stress test: no reversible ischemia Recommend: Guideline medical therapy for acute on chronic systolic heart failure. Otherwise, conservative cardiac management. Subjective Date of service: 10/18/20 Principal diagnosis: Acute CHF exacerbation Interval history: No cardiac complaints. No distress noted. Stable sinus rhythm on telemetry. Objective Vital Signs Temp Pulse Resp BP Pulse Ox 10/18/20 08:49 92 10/18/20 08:29 98.2 F 86 18 124/74 97 10/18/20 04:58 98.2 F 90 20 114/79 93 10/18/20 02:00 95 H 10/18/20 00:46 93 H 96 10/18/20 00:45 98.2 F 92 H 20 110/76 92 10/17/20 23:00 20 10/17/20 19:52 98.7 F 101 H 20 107/71 95 10/17/20 16:11 98.4 F 98 H 18 108/71 93 10/17/20 14:09 98 H 10/17/20 11:26 98.0 F 101 H 18 109/70 93 - Physical Examination General: No Apparent Distress HEENT: Positive: PERRL Neck: Positive: trachea midline Cardiac: Positive: Reg Rate and Rhythm Lungs: Positive: Decreased Breath Sounds Extremities: Absent: edema - Labs and Meds CBC 10/18/20 Range/Units 04:22 WBC 6.5 (4.5-11.0) K/mm3 RBC 3.26 L (3.65-5.03) M/mm3 Hgb 10.8 L (11.8-15.2) gm/dl Hct 32.0 L (35.5-45.6) % Plt Count 164 (140-440) K/mm3 Comprehensive Metabolic Panel 10/17/20 Range/Units 10:40 Creatinine 0.8 (0.8-1.3) mg/dL
[2020-10-18 11:35] LABS: BUN/Creatinine Ratio 26; Blood Urea Nitrogen 21 mg/dL (9-20); Calcium 8.9 mg/dL (8.4-10.2); Hemolysis Index 1
[2020-10-18] MEDS: DEXTROSE 50% IN WATER (25GM) 50 ML SYRINGE IV PRN (20:55)
[2020-10-18] MEDS: FAMOTIDINE 20 MG TAB PO SCH (22:00)
[2020-10-19] MEDS: FUROSEMIDE 20 MG/2 ML INJ IV SCH ×2 (06:52→17:47)
[2020-10-19] MEDS: LEVOTHYROXINE 125 MCG TAB PO SCH (06:52)
[2020-10-19] MEDS: INSULIN LISPRO 100 UNIT/ML SUB-Q SCH ×4 (08:41→22:00)
--- NOTE | 2020-10-19 08:41 | Progress Note ---
Assessment and Plan Assessment and plan: Hypothyroidism Acute systolic heart failure exacerbation/biventricular heart failure Atrial fibrillation Elevated bilirubin Elevated troponin Metabolic encephalopathy. Diabetes mellitus type 2 10/18/2020. Echocardiogram reveals right ventricular systolic function is severely reduced. LVEF 10 to 15%. Paradoxical septal motion consistent with conduction abnormality. Flattened septum consistent with right ventricular pressure and volume overload. 10/19/2020. Patient had outpatient Lexiscan thallium stress test that revealed no reversible ischemia on 07/2020. Cardiology to continue with aggressive heart failure management with intravenous diuretics. Will also consider trial of milrinone per cardiology recommendations. History Interval history: No new issues overnight. Hospitalist Physical - Constitutional Vitals: Temp Pulse Resp BP Pulse Ox 97.5 F L 72 20 119/78 100 10/19/20 07:25 10/19/20 07:25 10/19/20 07:25 10/19/20 07:25 10/19/20 07:25 General appearance: Present: no acute distress - EENT Eyes: Present: PERRL, EOM intact ENT: hearing intact, clear oral mucosa, dentition normal - Neck Neck: Present: supple, normal ROM - Respiratory Respiratory effort: normal Respiratory: bilateral: CTA - Cardiovascular Rhythm: regular Heart Sounds: Present: S1 & S2. Absent: gallop, rub - Extremities Extremities: no ischemia, No edema, Full ROM - Abdominal General gastrointestinal: soft, non-tender, non-distended, normal bowel sounds - Integumentary Integumentary: Present: clear, warm, dry - Neurologic Neurologic: CNII-XII intact, moves all extremities HEART Score - HEART Score EKG: Non-specific Age: > 65 Risk factors: > 3 risk factors or hx of atherosclerotic disease Troponin: Troponin T 0.053 ng/mL (0.00-0.029) H 10/14/20 07:06 Troponin: 1-3x normal limit Results - Labs CBC & Chem 7: 10/18/20 04:22 10/18/20 10:15 Labs: Laboratory Last Values WBC 6.5 K/mm3 (4.5-11.0) 10/18/20 04:22 RBC 3.26 M/mm3 (3.65-5.03) L 10/18/20 04:22 Hgb 10.8 gm/dl (11.8-15.2) L 10/18/20 04:22 Hct 32.0 % (35.5-45.6) L 10/18/20 04:22 MCV 98 fl (84-94) H 10/18/20 04:22 MCH 33 pg (28-32) H 10/18/20 04:22 MCHC 34 % (32-34) 10/18/20 04:22 RDW 17.6 % (13.2-15.2) H 10/18/20 04:22 Plt Count 164 K/mm3 (140-440) 10/18/20 04:22 Lymph % (Auto) 8.6 % (13.4-35.0) L 10/15/20 04:37 [place] % (Auto) 7.5 % (0.0-7.3) H 10/15/20 04:37 Eos % (Auto) 1.0 % (0.0-4.3) 10/15/20 04:37 Baso % (Auto) 0.9 % (0.0-1.8) 10/15/20 04:37 Lymph # (Auto) City Detective 10/14/20 07:06 [place] # (Auto) [employer] 10/14/20 07:06 Eos # (Auto) [employer] 10/14/20 07:06 Baso # (Auto) [employer] 10/14/20 07:06 Seg Neutrophils % 82.0 % (40.0-70.0) H 10/15/20 04:37 Seg Neutrophils # 5.8 K/mm3 (1.8-7.7) 10/15/20 04:37 PT 19.4 Sec. (12.2-14.9) H 10/14/20 15:14 INR 1.59 (0.87-1.13) H 10/14/20 15:14 APTT 39.8 Sec. (24.2-36.6) H 10/14/20 15:14 Sodium 140 mmol/L (137-145) 10/18/20 10:15 Potassium 3.9 mmol/L (3.6-5.0) 10/18/20 10:15 Chloride 100.8 mmol/L (98-107) 10/18/20 10:15 Carbon Dioxide 27 mmol/L (22-30) 10/18/20 10:15 Anion Gap 16 mmol/L 10/18/20 10:15 BUN 21 mg/dL (9-20) H 10/18/20 10:15 Creatinine 0.8 mg/dL (0.8-1.3) 10/18/20 10:15 Estimated GFR > 60 ml/min 10/18/20 10:15 BUN/Creatinine Ratio 26 % 10/18/20 10:15 Glucose 102 mg/dL (75-100) H 10/18/20 10:15 POC Glucose 72 mg/dL (70-105) 10/19/20 07:26 Calcium 8.9 mg/dL (8.4-10.2) 10/18/20 10:15 Total Bilirubin 2.50 mg/dL (0.1-1.2) H 10/16/20 07:44 AST 17 units/L (5-40) 10/16/20 07:44 ALT 7 units/L (7-56) 10/16/20 07:44 Alkaline Phosphatase 178 units/L (35-129) H 10/16/20 07:44 Ammonia 25.0 umol/L (25-60) 10/14/20 07:06 Troponin T 0.053 ng/mL (0.00-0.029) H 10/14/20 07:06 NT-Pro-B Natriuret Pep 28235 pg/mL (0-900) H 10/14/20 07:06 Total Protein 5.9 g/dL (6.3-8.2) L 10/16/20 07:44 Albumin 3.2 g/dL (3.9-5) L 10/16/20 07:44 Albumin/Globulin Ratio 1.2 % 10/16/20 07:44 Triglycerides 45 mg/dL (2-149) 10/14/20 07:06 Cholesterol 122 mg/dL (50-199) 10/14/20 07:06 LDL Cholesterol Direct 76 mg/dL (50-130) 10/14/20 07:06 HDL Cholesterol 42 mg/dL (40-59) 10/14/20 07:06 Cholesterol/HDL Ratio 2.90 % 10/14/20 07:06 TSH 11.470 mlU/mL (0.270-4.200) H 10/14/20 07:06 Plasma/Serum Alcohol < 0.01 % (0-0.07) 10/14/20 07:06 Coronavirus (PCR) Negative (Negative) 10/15/20 11:45 Microbiology: Microbiology 10/14/20 15:14 Peripheral/Venous Blood Culture - Preliminary NO GROWTH AFTER 4 DAYS 10/14/20 15:14 Peripheral/Venous Blood Culture - Preliminary NO GROWTH AFTER 4 DAYS Nuno/IV: Voiding Method Indwelling Catheter Active Medications - Current Medications Current Medications: Generic Name Dose Route Start Last Admin Trade Name Freq PRN Reason Stop Dose Admin Acetaminophen 650 mg 10/14/20 13:00 10/18/20 09:18 Acetaminophen 325 Mg Tab PO 650 mg Q4H PRN Administration Pain MILD(1-3)/Fever >100.5/MARTIN Albuterol 2.5 mg 10/14/20 13:56 Albuterol 2.5 Mg/3 Ml Nebu IH Q4HRT PRN Shortness Of Breath Alprazolam 0.125 mg 10/14/20 13:56 Alprazolam 0.25 Mg Tab PO Q8H PRN Agitation Apixaban 5 mg 10/14/20 15:00 10/18/20 22:00 Apixaban 5 Mg Tab PO 5 mg Q12HR MARTÍN Administration Protocol Carvedilol 6.25 mg 10/18/20 10:00 10/18/20 22:00 Carvedilol 6.25 Mg Tab PO 6.25 mg BID MARTÍN Administration Dextrose 50 ml 10/14/20 13:56 10/18/20 20:55 Dextrose 50% In Water (25gm) 50 Ml Syringe IV 25 ml Q30MIN PRN Administration Hypoglycemia Protocol Docusate Sodium 100 mg 10/14/20 22:00 10/18/20 22:01 Docusate Sodium 100 Mg Cap PO 100 mg BID MARTÍN Administration Famotidine 20 mg 10/18/20 22:00 10/18/20 22:00 Famotidine 20 Mg Tab PO 20 mg BID MARTÍN Administration Furosemide 20 mg 10/14/20 18:00 10/19/20 06:52 Furosemide 20 Mg/2 Ml Inj IV 20 mg BID@0600,1800 MARTÍN Administration Insulin Human Lispro 0 unit 10/14/20 16:30 10/18/20 21:31 Insulin Lispro 100 Unit/Ml SUB-Q Not Given ACHS MARTÍN Protocol Levothyroxine Sodium 125 mcg 10/15/20 06:00 10/19/20 06:52 Levothyroxine 125 Mcg Tab PO 125 mcg DAILY@0600 MARTÍN Administration Lisinopril 5 mg 10/19/20 10:00 Lisinopril 5 Mg Tab PO QDAY MARTÍN Morphine Sulfate 2 mg 10/14/20 13:56 Morphine 2 Mg/1 Ml Inj IV Q4H PRN Pain, Moderate (4-6) Naloxone HCl 0.1 mg 10/14/20 13:56 Naloxone 0.4 Mg/1 Ml Inj IV Q2MIN PRN Res Rate </= 8 or 02 SAT < 92% Ondansetron HCl 4 mg 10/14/20 13:56 Ondansetron 4 Mg/2 Ml Inj IV Q8H PRN Nausea And Vomiting Oxycodone/Acetaminophen 1 tab 10/14/20 13:56 Oxycodone /Acetaminophen 5-325mg Tab PO Q6H PRN Pain, Moderate (4-6) Sodium Chloride 10 ml 10/14/20 14:00 10/18/20 22:01 Sodium Chloride 0.9% 10 Ml Flush Syringe IV 10 ml BID MARTÍN Administration Sodium Chloride 10 ml 10/14/20 13:56 10/18/20 17:41 Sodium Chloride 0.9% 10 Ml Flush Syringe IV 10 ml PRN PRN Administration LINE FLUSH Spironolactone 25 mg 10/18/20 10:00 10/18/20 09:13 Spironolactone 25 Mg Tab PO 25 mg QDAY MARTÍN Administration Tamsulosin HCl 0.4 mg 10/14/20 15:00 10/18/20 09:10 Tamsulosin 0.4 Mg Cap PO 0.4 mg QDAY MARTÍN Administration
[2020-10-19] MEDS: DEXTROSE 50% IN WATER (25GM) 50 ML SYRINGE IV PRN (08:46)
--- NOTE | 2020-10-19 09:30 | Progress Note ---
Assessment and Plan - Patient Problems (1) CHF (congestive heart failure) Current Visit: Yes Status: Acute Qualifiers: Qualified Code(s): I50.9 - Heart failure, unspecified Plan to address problem: Echocardiogram this admission demonstrates a 4 chamber dilated cardiomyopathy, ejection fraction 10-15%. There was severe TR and severe pulmonary hypertension, RSVP 71 mmHg. 07/2020 outpatient Lexiscan thallium stress test: no reversible ischemia Recommend: Continue guideline directed medical therapy for chronic systolic heart failure. Otherwise, conservative cardiac management. Subjective Date of service: 10/19/20 Principal diagnosis: Acute CHF exacerbation Interval history: Patient is resting in bed and appears comfortable. Denies shortness of breath. Short burst of NSVT seen on telemetry overnight. It is reported the patient remained asymptomatic. Objective Vital Signs Temp Pulse Pulse Resp BP BP Pulse Ox 10/19/20 07:25 97.5 F L 72 20 119/78 100 10/19/20 04:43 98.4 F 68 20 100/58 10/19/20 02:00 68 10/18/20 23:41 98.0 F 18 96/66 10/18/20 22:48 99 10/18/20 22:00 83 116/72 10/18/20 20:49 85 20 10/18/20 19:09 98.4 F 70 18 106/72 100 10/18/20 15:39 97.6 F 88 18 95/66 97 10/18/20 14:00 105 H 10/18/20 12:00 90 18 109/69 97 10/18/20 10:00 90 18 - Physical Examination General: No Apparent Distress HEENT: Positive: PERRL Neck: Positive: trachea midline Cardiac: Positive: Reg Rate and Rhythm Lungs: Positive: Decreased Breath Sounds Extremities: Present: Other (dry) - Labs and Meds Comprehensive Metabolic Panel 10/18/20 Range/Units 10:15 Sodium 140 (137-145) mmol/L Potassium 3.9 (3.6-5.0) mmol/L Chloride 100.8 (98-107) mmol/L Carbon Dioxide 27 (22-30) mmol/L BUN 21 H (9-20) mg/dL Creatinine 0.8 (0.8-1.3) mg/dL Glucose 102 H (75-100) mg/dL Calcium 8.9 (8.4-10.2) mg/dL
[2020-10-19] MEDS: FAMOTIDINE 20 MG TAB PO SCH ×2 (10:28→21:23)
[2020-10-19] MEDS: APIXABAN 5 MG TAB PO SCH ×2 (10:28→21:23)
[2020-10-19] MEDS: DOCUSATE SODIUM 100 MG CAP PO SCH ×2 (10:28→21:23)
[2020-10-19] MEDS: SPIRONOLACTONE 25 MG TAB PO SCH (10:28)
[2020-10-19] MEDS: carvediloL 6.25 MG TAB PO SCH ×2 (10:28→21:23)
[2020-10-19] MEDS: TAMSULOSIN 0.4 MG CAP PO SCH (10:28)
[2020-10-19] MEDS: LISINOPRIL 5 MG TAB PO SCH (10:28)
[2020-10-20] MEDS: LEVOTHYROXINE 125 MCG TAB PO SCH (06:06)
[2020-10-20] MEDS: FUROSEMIDE 20 MG/2 ML INJ IV SCH (06:06)
[2020-10-20 06:30] LABS: Hematocrit 32.9 % (35.5-45.6); Hemoglobin 10.7 gm/dl (11.8-15.2); Mean Corpuscular HGB Conc 33 % (32-34); Mean Corpuscular Volume 98 fl (84-94); Platelet Count 181 K/mm3 (140-440); Red Blood Count 3.36 M/mm3 (3.65-5.03); Red Cell Distribution Width 17.3 % (13.2-15.2)
--- NOTE | 2020-10-20 09:21 | Progress Note ---
Assessment and Plan Assessment and plan: Hypothyroidism Acute systolic heart failure exacerbation/biventricular heart failure Atrial fibrillation Elevated bilirubin Elevated troponin Metabolic encephalopathy. Diabetes mellitus type 2 10/18/2020. Echocardiogram reveals right ventricular systolic function is severely reduced. LVEF 10 to 15%. Paradoxical septal motion consistent with conduction abnormality. Flattened septum consistent with right ventricular pressure and volume overload. 10/19/2020. Patient had outpatient Lexiscan thallium stress test that revealed no reversible ischemia on 07/2020. Cardiology to continue with aggressive heart failure management with intravenous diuretics. Will also consider trial of milrinone per cardiology recommendations. 10/20/2020. Physical therapy recommends SNF. Continue GDMT per cardiology recommendations. Await case management arrangement for SNF placement History Interval history: No new issues overnight. Hospitalist Physical - Constitutional Vitals: Temp Pulse Resp BP Pulse Ox 97.4 F L 73 20 110/72 98 10/20/20 07:51 10/20/20 07:51 10/20/20 07:51 10/20/20 07:51 10/20/20 07:51 General appearance: Present: no acute distress - EENT Eyes: Present: PERRL, EOM intact ENT: hearing intact, clear oral mucosa, dentition normal - Neck Neck: Present: supple, normal ROM - Respiratory Respiratory effort: normal Respiratory: bilateral: CTA - Cardiovascular Rhythm: regular Heart Sounds: Present: S1 & S2. Absent: gallop, rub - Extremities Extremities: no ischemia, No edema, Full ROM - Abdominal General gastrointestinal: soft, non-tender, non-distended, normal bowel sounds - Integumentary Integumentary: Present: clear, warm, dry - Neurologic Neurologic: CNII-XII intact, moves all extremities HEART Score - HEART Score EKG: Non-specific Age: > 65 Risk factors: > 3 risk factors or hx of atherosclerotic disease Troponin: Troponin T 0.053 ng/mL (0.00-0.029) H 10/14/20 07:06 Troponin: 1-3x normal limit Results - Labs CBC & Chem 7: 10/20/20 04:46 10/20/20 04:46 Labs: Laboratory Last Values WBC 5.6 K/mm3 (4.5-11.0) 10/20/20 04:46 RBC 3.36 M/mm3 (3.65-5.03) L 10/20/20 04:46 Hgb 10.7 gm/dl (11.8-15.2) L 10/20/20 04:46 Hct 32.9 % (35.5-45.6) L 10/20/20 04:46 MCV 98 fl (84-94) H 10/20/20 04:46 MCH 32 pg (28-32) 10/20/20 04:46 MCHC 33 % (32-34) 10/20/20 04:46 RDW 17.3 % (13.2-15.2) H 10/20/20 04:46 Plt Count 181 K/mm3 (140-440) 10/20/20 04:46 Lymph % (Auto) 8.6 % (13.4-35.0) L 10/15/20 04:37 [place] % (Auto) 7.5 % (0.0-7.3) H 10/15/20 04:37 Eos % (Auto) 1.0 % (0.0-4.3) 10/15/20 04:37 Baso % (Auto) 0.9 % (0.0-1.8) 10/15/20 04:37 Lymph # (Auto) Academic Affairs Dean 10/14/20 07:06 [place] # (Auto) Academic Affairs Dean 10/14/20 07:06 Eos # (Auto) Academic Affairs Dean 10/14/20 07:06 Baso # (Auto) Academic Affairs Dean 10/14/20 07:06 Seg Neutrophils % 82.0 % (40.0-70.0) H 10/15/20 04:37 Seg Neutrophils # 5.8 K/mm3 (1.8-7.7) 10/15/20 04:37 PT 19.4 Sec. (12.2-14.9) H 10/14/20 15:14 INR 1.59 (0.87-1.13) H 10/14/20 15:14 APTT 39.8 Sec. (24.2-36.6) H 10/14/20 15:14 Sodium 140 mmol/L (137-145) 10/18/20 10:15 Potassium 3.9 mmol/L (3.6-5.0) 10/18/20 10:15 Chloride 100.8 mmol/L (98-107) 10/18/20 10:15 Carbon Dioxide 27 mmol/L (22-30) 10/18/20 10:15 Anion Gap 16 mmol/L 10/18/20 10:15 BUN 21 mg/dL (9-20) H 10/18/20 10:15 Creatinine 0.8 mg/dL (0.8-1.3) 10/20/20 04:46 Estimated GFR > 60 ml/min 10/20/20 04:46 BUN/Creatinine Ratio 26 % 10/18/20 10:15 Glucose 102 mg/dL (75-100) H 10/18/20 10:15 POC Glucose 85 mg/dL (70-105) 10/20/20 07:54 Calcium 8.9 mg/dL (8.4-10.2) 10/18/20 10:15 Total Bilirubin 2.50 mg/dL (0.1-1.2) H 10/16/20 07:44 AST 17 units/L (5-40) 10/16/20 07:44 ALT 7 units/L (7-56) 10/16/20 07:44 Alkaline Phosphatase 178 units/L (35-129) H 10/16/20 07:44 Ammonia 25.0 umol/L (25-60) 10/14/20 07:06 Troponin T 0.053 ng/mL (0.00-0.029) H 10/14/20 07:06 NT-Pro-B Natriuret Pep 38965 pg/mL (0-900) H 10/14/20 07:06 Total Protein 5.9 g/dL (6.3-8.2) L 10/16/20 07:44 Albumin 3.2 g/dL (3.9-5) L 10/16/20 07:44 Albumin/Globulin Ratio 1.2 % 10/16/20 07:44 Triglycerides 45 mg/dL (2-149) 10/14/20 07:06 Cholesterol 122 mg/dL (50-199) 10/14/20 07:06 LDL Cholesterol Direct 76 mg/dL (50-130) 10/14/20 07:06 HDL Cholesterol 42 mg/dL (40-59) 10/14/20 07:06 Cholesterol/HDL Ratio 2.90 % 10/14/20 07:06 TSH 11.470 mlU/mL (0.270-4.200) H 10/14/20 07:06 Plasma/Serum Alcohol < 0.01 % (0-0.07) 10/14/20 07:06 Coronavirus (PCR) Negative (Negative) 10/15/20 11:45 Microbiology: Microbiology 10/14/20 15:14 Peripheral/Venous Blood Culture - Final NO GROWTH AFTER 5 DAYS 10/14/20 15:14 Peripheral/Venous Blood Culture - Final NO GROWTH AFTER 5 DAYS Nuno/IV: Voiding Method Indwelling Catheter Active Medications - Current Medications Current Medications: Generic Name Dose Route Start Last Admin Trade Name Freq PRN Reason Stop Dose Admin Acetaminophen 650 mg 10/14/20 13:00 10/18/20 09:18 Acetaminophen 325 Mg Tab PO 650 mg Q4H PRN Administration Pain MILD(1-3)/Fever >100.5/MARTIN Albuterol 2.5 mg 10/14/20 13:56 Albuterol 2.5 Mg/3 Ml Nebu IH Q4HRT PRN Shortness Of Breath Alprazolam 0.125 mg 10/14/20 13:56 Alprazolam 0.25 Mg Tab PO Q8H PRN Agitation Apixaban 5 mg 10/14/20 15:00 10/19/20 21:23 Apixaban 5 Mg Tab PO 5 mg Q12HR MARTÍN Administration Protocol Carvedilol 6.25 mg 10/18/20 10:00 10/19/20 21:23 Carvedilol 6.25 Mg Tab PO 6.25 mg BID MARTÍN Administration Dextrose 50 ml 10/14/20 13:56 10/19/20 08:46 Dextrose 50% In Water (25gm) 50 Ml Syringe IV 50 ml Q30MIN PRN Administration Hypoglycemia Protocol Docusate Sodium 100 mg 10/14/20 22:00 10/19/20 21:23 Docusate Sodium 100 Mg Cap PO 100 mg BID MARTÍN Administration Famotidine 20 mg 10/18/20 22:00 10/19/20 21:23 Famotidine 20 Mg Tab PO 20 mg BID MARTÍN Administration Furosemide 20 mg 10/14/20 18:00 10/20/20 06:06 Furosemide 20 Mg/2 Ml Inj IV 20 mg BID@0600,1800 MARTÍN Administration Insulin Human Lispro 0 unit 10/14/20 16:30 10/19/20 22:00 Insulin Lispro 100 Unit/Ml SUB-Q Not Given ACHS MARTÍN Protocol Levothyroxine Sodium 125 mcg 10/15/20 06:00 10/20/20 06:06 Levothyroxine 125 Mcg Tab PO 125 mcg DAILY@0600 MARTÍN Administration Lisinopril 5 mg 10/19/20 10:00 10/19/20 10:28 Lisinopril 5 Mg Tab PO 5 mg QDAY MARTÍN Administration Morphine Sulfate 2 mg 10/14/20 13:56 Morphine 2 Mg/1 Ml Inj IV Q4H PRN Pain, Moderate (4-6) Naloxone HCl 0.1 mg 10/14/20 13:56 Naloxone 0.4 Mg/1 Ml Inj IV Q2MIN PRN Res Rate </= 8 or 02 SAT < 92% Ondansetron HCl 4 mg 10/14/20 13:56 Ondansetron 4 Mg/2 Ml Inj IV Q8H PRN Nausea And Vomiting Oxycodone/Acetaminophen 1 tab 10/14/20 13:56 Oxycodone /Acetaminophen 5-325mg Tab PO Q6H PRN Pain, Moderate (4-6) Sodium Chloride 10 ml 10/14/20 14:00 10/19/20 21:29 Sodium Chloride 0.9% 10 Ml Flush Syringe IV 10 ml BID MARTÍN Administration Sodium Chloride 10 ml 10/14/20 13:56 10/19/20 08:47 Sodium Chloride 0.9% 10 Ml Flush Syringe IV 10 ml PRN PRN Administration LINE FLUSH Spironolactone 25 mg 10/18/20 10:00 10/19/20 10:28 Spironolactone 25 Mg Tab PO 25 mg QDAY MARTÍN Administration Tamsulosin HCl 0.4 mg 10/14/20 15:00 10/19/20 10:28 Tamsulosin 0.4 Mg Cap PO 0.4 mg QDAY MARTÍN Administration
--- NOTE | 2020-10-20 09:27 | Progress Note ---
Assessment and Plan - Patient Problems (1) CHF (congestive heart failure) Current Visit: Yes Status: Acute Qualifiers: Qualified Code(s): I50.9 - Heart failure, unspecified Plan to address problem: Echocardiogram this admission demonstrates a 4 chamber dilated cardiomyopathy, ejection fraction 10-15%. There was severe TR and severe pulmonary hypertension, RSVP 71 mmHg. 07/2020 outpatient Lexiscan thallium stress test: no reversible ischemia Recommend: Continue guideline directed medical therapy for chronic systolic heart failure. Otherwise, conservative cardiac management. Subjective Date of service: 10/20/20 Principal diagnosis: Acute CHF exacerbation Interval history: Patient is resting in bed and appears comfortable. Denies shortness of breath and denies chest pain. Objective Vital Signs Temp Pulse Pulse Resp BP Pulse Ox 10/20/20 09:19 97 10/20/20 07:51 97.4 F L 73 20 110/72 98 10/20/20 04:02 98.0 F 75 18 106/72 99 10/20/20 02:00 78 10/19/20 23:14 97.8 F 77 20 117/71 99 10/19/20 21:23 82 113/75 10/19/20 21:01 78 20 10/19/20 20:31 99 10/19/20 19:23 97.8 F 78 18 113/75 99 10/19/20 16:22 98.0 F 20 103/62 10/19/20 14:00 72 10/19/20 11:50 97.2 F L 79 18 103/70 94 10/19/20 10:00 72 20 100 - Physical Examination General: No Apparent Distress HEENT: Positive: PERRL Neck: Positive: trachea midline Cardiac: Positive: Reg Rate and Rhythm Lungs: Positive: Decreased Breath Sounds Extremities: Present: Other (dry) - Labs and Meds CBC 10/20/20 Range/Units 04:46 WBC 5.6 (4.5-11.0) K/mm3 RBC 3.36 L (3.65-5.03) M/mm3 Hgb 10.7 L (11.8-15.2) gm/dl Hct 32.9 L (35.5-45.6) % Plt Count 181 (140-440) K/mm3 Comprehensive Metabolic Panel 10/20/20 Range/Units 04:46 Creatinine 0.8 (0.8-1.3) mg/dL
--- NOTE | 2020-10-20 10:37 | Electrocardiograph Report ---
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
[2020-10-20] MEDS: INSULIN LISPRO 100 UNIT/ML SUB-Q SCH ×4 (10:54→22:50)
[2020-10-20] MEDS: carvediloL 6.25 MG TAB PO SCH ×2 (11:34→22:50)
[2020-10-20] MEDS: FAMOTIDINE 20 MG TAB PO SCH ×2 (11:36→22:50)
[2020-10-20] MEDS: LISINOPRIL 5 MG TAB PO SCH (11:36)
[2020-10-20] MEDS: SPIRONOLACTONE 25 MG TAB PO SCH (11:36)
[2020-10-20] MEDS: DOCUSATE SODIUM 100 MG CAP PO SCH ×2 (11:37→22:50)
[2020-10-20] MEDS: APIXABAN 5 MG TAB PO SCH ×2 (11:37→22:50)
--- NOTE | 2020-10-20 15:19 | Discharge Summary ---
Providers - Providers Date of Admission: 10/14/20 09:20 Date of discharge: 10/20/20 Attending physician: JACQUELINE HUSAIN 10/14/20 13:56 Consult to Physician [CONS] Routine Comment: Consulting Provider: MARTA AKERS Physician Instructions: Reason For Exam: chf Consult to Physician [CONS] Routine Comment: Consulting Provider: MARTA AKERS Physician Instructions: Reason For Exam: chf 10/17/20 08:18 Consult to Wound/ET Nurse [CONS] Routine Reason For Exam: wound eval 10/18/20 10:50 Physical Therapy Evaluation and Treat [CONS] Routine Comment: Reason For Exam: deconditioning Primary care physician: SOCIAL SCIENCES DEPARTMENT CHAIR Hospitalization Reason for admission: CHF Condition: Serious Hospital course: Patient 70-year-old male with a history of dementia, hypothyroidism, atrial fibrillation, congestive heart failure, diabetes, hypertension presents from the nursing facility with a chief complaint of altered mental status hypoxemia and hypotension. Patient has dementia and is usually alert and oriented x2 however the day TRIAGE REGISTER NURSE was found to be hypoxic with O2 sats of 88% and also hypotensive wi th blood pressure 85/62. On presentation to the ED patient was found to also be hypoglycemic at 29. Patient was given D50 and had minimal response and became hypoglycemic several hours later. Upon evaluation the patient was alert and oriented x2. This was consistent with patient's baseline however he was in the nursing facility. Initial work-up in ED patient found to have normal sinus rhythm. CT scan of head was obtained was unremarkable and chest x-ray showed mild edema with bilateral pleural effusions. The patient was admitted with dx of acute systolic heart failure, acute hypoxix resp failure and metabolic encephalopathy. During work up in the hospital, pt was also found to have hypothyroidism not well controlled and synthroid doses adjusted. Cardiology consulted and rx with GDMT for heart failure with improvement. Hospital course: 10/18/2020. Echocardiogram revealed right ventricular systolic function is severely reduced. LVEF 10 to 15%. Paradoxical septal motion consistent with conduction abnormality. Flattened septum consistent with right ventricular pressure and volume overload. 10/19/2020. Patient had outpatient Lexiscan thallium stress test that revealed no reversible ischemia on 07/2020. Cardiology to continue with aggressive heart failure management with intravenous diuretics. Will also consider trial of milrinone per cardiology recommendations. 10/20/2020. Physical therapy recommends SNF. Continue GDMT per cardiology recommendations. Case management made arrangements for pt to return to SNF. D/C time 32 min Disposition: [id number]/[place]-03 SNF W [facility] CERT Final Discharge Diagnosis (Prints w/discharge instructions): Hypothyroidism, Acute systolic heart failure exacerbation/biventricular heart failure, Atrial fibrillation, Elevated bilirubin, Elevated troponin, Metabolic encephalopathy, Diabetes mellitus type 2 Core Measure Documentation - Palliative Care Palliative Care/ Comfort Measures: Not Applicable - Core Measures Any of the following diagnoses?: heart failure - Heart Failure Discharge Requirements PARISH/ARB for LVSD if EF <40%: Yes Beta lizeth at discharge: Yes Exam - Constitutional Vitals: Temp Pulse Resp BP Pulse Ox 98.3 F 78 18 109/66 98 10/20/20 12:06 10/20/20 12:06 10/20/20 12:06 10/20/20 12:06 10/20/20 12:06 General appearance: Present: no acute distress, well-nourished - EENT Eyes: Present: PERRL ENT: hearing intact, clear oral mucosa - Neck Neck: Present: supple, normal ROM - Respiratory Respiratory effort: normal Respiratory: bilateral: CTA - Cardiovascular Heart Sounds: Present: S1 & S2. Absent: rub, click - Extremities Extremities: pulses symmetrical, No edema Peripheral Pulses: within normal limits - Abdominal General gastrointestinal: Present: soft, non-tender, non-distended, normal bowel sounds Male genitourinary: Present: normal - Integumentary Integumentary: Present: clear, warm, dry - Musculoskeletal Musculoskeletal: gait normal, strength equal bilaterally - Psychiatric Psychiatric: appropriate mood/affect, intact judgment & insight - Neurologic Neurologic: CNII-XII intact, moves all extremities Plan Activity: advance as tolerated Weight Bearing Status: Full Weight Bearing Diet: low fat, low cholesterol, low salt Follow up with: PRIMARY CAREMD [Primary Care Provider] - 7 Days
[2020-10-20] MEDS: FUROSEMIDE 20 MG TAB PO SCH (17:35)
[2020-10-20] MEDS: TAMSULOSIN 0.4 MG CAP PO SCH (17:36)
[2020-10-21] MEDS: LEVOTHYROXINE 125 MCG TAB PO SCH (05:49)
[2020-10-21] MEDS: FUROSEMIDE 20 MG TAB PO SCH ×2 (05:49→17:00)
[2020-10-21] MEDS: INSULIN LISPRO 100 UNIT/ML SUB-Q SCH ×4 (08:37→22:47)
[2020-10-21] MEDS: LISINOPRIL 5 MG TAB PO SCH (09:10)
[2020-10-21] MEDS: DOCUSATE SODIUM 100 MG CAP PO SCH ×2 (09:11→22:46)
[2020-10-21] MEDS: SPIRONOLACTONE 25 MG TAB PO SCH (09:11)
[2020-10-21] MEDS: APIXABAN 5 MG TAB PO SCH ×2 (09:11→22:46)
[2020-10-21] MEDS: FAMOTIDINE 20 MG TAB PO SCH ×2 (09:11→22:46)
[2020-10-21] MEDS: TAMSULOSIN 0.4 MG CAP PO SCH (09:11)
[2020-10-21] MEDS: carvediloL 6.25 MG TAB PO SCH ×2 (09:11→22:47)
--- NOTE | 2020-10-21 09:23 | Progress Note ---
Assessment and Plan Assessment and plan: Hypothyroidism Acute systolic heart failure exacerbation/biventricular heart failure Atrial fibrillation Elevated bilirubin Elevated troponin Metabolic encephalopathy. Diabetes mellitus type 2 10/18/2020. Echocardiogram reveals right ventricular systolic function is severely reduced. LVEF 10 to 15%. Paradoxical septal motion consistent with conduction abnormality. Flattened septum consistent with right ventricular pressure and volume overload. 10/19/2020. Patient had outpatient Lexiscan thallium stress test that revealed no reversible ischemia on 07/2020. Cardiology to continue with aggressive heart failure management with intravenous diuretics. Will also consider trial of milrinone per cardiology recommendations. 10/20/2020. Physical therapy recommends SNF. Continue GDMT per cardiology recommendations. Await case management arrangement for SNF placement 10/21/2020. Patient was not able to be accepted back to [facility] because Case management reports patient is n his medicare co-days and Family will need to do a Medicaid Application before pt can return. media marketing coordinator also has made attempts to reach the daughter Rebeca Ohara regarding the matter with no success. Follow-up with case management regarding discharge planning. Patient is medically stable. Cardiology recommends to continue guideline directed medical therapy for chronic systolic heart failure and conservative cardiac management. History Interval history: No new issues overnight. Hospitalist Physical - Constitutional Vitals: Temp Pulse Resp BP Pulse Ox 96.9 F L 78 20 110/60 100 10/21/20 08:04 10/21/20 09:11 10/21/20 08:04 10/21/20 09:11 10/21/20 08:04 General appearance: Present: no acute distress, well-nourished - EENT Eyes: Present: PERRL, EOM intact ENT: hearing intact, clear oral mucosa, dentition normal - Neck Neck: Present: supple, normal ROM - Respiratory Respiratory effort: normal Respiratory: bilateral: CTA - Cardiovascular Rhythm: regular Heart Sounds: Present: S1 & S2. Absent: gallop, rub - Extremities Extremities: no ischemia, No edema, Full ROM - Abdominal General gastrointestinal: soft, non-tender, non-distended, normal bowel sounds - Integumentary Integumentary: Present: clear, warm, dry - Neurologic Neurologic: CNII-XII intact, moves all extremities HEART Score - HEART Score EKG: Non-specific Age: > 65 Risk factors: > 3 risk factors or hx of atherosclerotic disease Troponin: Troponin T 0.053 ng/mL (0.00-0.029) H 10/14/20 07:06 Troponin: 1-3x normal limit Results - Labs CBC & Chem 7: 10/20/20 04:46 10/20/20 04:46 Labs: Laboratory Last Values WBC 5.6 K/mm3 (4.5-11.0) 10/20/20 04:46 RBC 3.36 M/mm3 (3.65-5.03) L 10/20/20 04:46 Hgb 10.7 gm/dl (11.8-15.2) L 10/20/20 04:46 Hct 32.9 % (35.5-45.6) L 10/20/20 04:46 MCV 98 fl (84-94) H 10/20/20 04:46 MCH 32 pg (28-32) 10/20/20 04:46 MCHC 33 % (32-34) 10/20/20 04:46 RDW 17.3 % (13.2-15.2) H 10/20/20 04:46 Plt Count 181 K/mm3 (140-440) 10/20/20 04:46 Lymph % (Auto) 8.6 % (13.4-35.0) L 10/15/20 04:37 [place] % (Auto) 7.5 % (0.0-7.3) H 10/15/20 04:37 Eos % (Auto) 1.0 % (0.0-4.3) 10/15/20 04:37 Baso % (Auto) 0.9 % (0.0-1.8) 10/15/20 04:37 Lymph # (Auto) Retail Sales Associate Seasonal 10/14/20 07:06 [place] # (Auto) Retail Sales Associate Seasonal 10/14/20 07:06 Eos # (Auto) Retail Sales Associate Seasonal 10/14/20 07:06 Baso # (Auto) Retail Sales Associate Seasonal 10/14/20 07:06 Seg Neutrophils % 82.0 % (40.0-70.0) H 10/15/20 04:37 Seg Neutrophils # 5.8 K/mm3 (1.8-7.7) 10/15/20 04:37 PT 19.4 Sec. (12.2-14.9) H 10/14/20 15:14 INR 1.59 (0.87-1.13) H 10/14/20 15:14 APTT 39.8 Sec. (24.2-36.6) H 10/14/20 15:14 Sodium 140 mmol/L (137-145) 10/18/20 10:15 Potassium 3.9 mmol/L (3.6-5.0) 10/18/20 10:15 Chloride 100.8 mmol/L (98-107) 10/18/20 10:15 Carbon Dioxide 27 mmol/L (22-30) 10/18/20 10:15 Anion Gap 16 mmol/L 10/18/20 10:15 BUN 21 mg/dL (9-20) H 10/18/20 10:15 Creatinine 0.8 mg/dL (0.8-1.3) 10/20/20 04:46 Estimated GFR > 60 ml/min 10/20/20 04:46 BUN/Creatinine Ratio 26 % 10/18/20 10:15 Glucose 102 mg/dL (75-100) H 10/18/20 10:15 POC Glucose 76 mg/dL (70-105) 10/21/20 08:01 Calcium 8.9 mg/dL (8.4-10.2) 10/18/20 10:15 Total Bilirubin 2.50 mg/dL (0.1-1.2) H 10/16/20 07:44 AST 17 units/L (5-40) 10/16/20 07:44 ALT 7 units/L (7-56) 10/16/20 07:44 Alkaline Phosphatase 178 units/L (35-129) H 10/16/20 07:44 Ammonia 25.0 umol/L (25-60) 10/14/20 07:06 Troponin T 0.053 ng/mL (0.00-0.029) H 10/14/20 07:06 NT-Pro-B Natriuret Pep 25521 pg/mL (0-900) H 10/14/20 07:06 Total Protein 5.9 g/dL (6.3-8.2) L 10/16/20 07:44 Albumin 3.2 g/dL (3.9-5) L 10/16/20 07:44 Albumin/Globulin Ratio 1.2 % 10/16/20 07:44 Triglycerides 45 mg/dL (2-149) 10/14/20 07:06 Cholesterol 122 mg/dL (50-199) 10/14/20 07:06 LDL Cholesterol Direct 76 mg/dL (50-130) 10/14/20 07:06 HDL Cholesterol 42 mg/dL (40-59) 10/14/20 07:06 Cholesterol/HDL Ratio 2.90 % 10/14/20 07:06 TSH 11.470 mlU/mL (0.270-4.200) H 10/14/20 07:06 Plasma/Serum Alcohol < 0.01 % (0-0.07) 10/14/20 07:06 Coronavirus (PCR) Negative (Negative) 10/15/20 11:45 Nuno/IV: Voiding Method Indwelling Catheter Active Medications - Current Medications Current Medications: Generic Name Dose Route Start Last Admin Trade Name Freq PRN Reason Stop Dose Admin Acetaminophen 650 mg 10/14/20 13:00 10/18/20 09:18 Acetaminophen 325 Mg Tab PO 650 mg Q4H PRN Administration Pain MILD(1-3)/Fever >100.5/MARTIN Albuterol 2.5 mg 10/14/20 13:56 Albuterol 2.5 Mg/3 Ml Nebu IH Q4HRT PRN Shortness Of Breath Alprazolam 0.125 mg 10/14/20 13:56 Alprazolam 0.25 Mg Tab PO Q8H PRN Agitation Apixaban 5 mg 10/14/20 15:00 10/21/20 09:11 Apixaban 5 Mg Tab PO 5 mg Q12HR MARTÍN Administration Protocol Carvedilol 6.25 mg 10/18/20 10:00 10/21/20 09:11 Carvedilol 6.25 Mg Tab PO 6.25 mg BID MARTÍN Administration Dextrose 50 ml 10/14/20 13:56 10/19/20 08:46 Dextrose 50% In Water (25gm) 50 Ml Syringe IV 50 ml Q30MIN PRN Administration Hypoglycemia Protocol Docusate Sodium 100 mg 10/14/20 22:00 10/21/20 09:11 Docusate Sodium 100 Mg Cap PO 100 mg BID MARTÍN Administration Famotidine 20 mg 10/18/20 22:00 10/21/20 09:11 Famotidine 20 Mg Tab PO 20 mg BID MARTÍN Administration Furosemide 20 mg 10/20/20 18:00 10/21/20 05:49 Furosemide 20 Mg Tab PO 20 mg 0600,1800 MARTÍN Administration Insulin Human Lispro 0 unit 10/14/20 16:30 10/21/20 08:37 Insulin Lispro 100 Unit/Ml SUB-Q Not Given ACHS [facility] Protocol Levothyroxine Sodium 125 mcg 10/15/20 06:00 10/21/20 05:49 Levothyroxine 125 Mcg Tab PO 125 mcg DAILY@0600 MARTÍN Administration Lisinopril 5 mg 10/19/20 10:00 10/21/20 09:10 Lisinopril 5 Mg Tab PO 5 mg QDAY MARTÍN Administration Morphine Sulfate 2 mg 10/14/20 13:56 Morphine 2 Mg/1 Ml Inj IV Q4H PRN Pain, Moderate (4-6) Naloxone HCl 0.1 mg 10/14/20 13:56 Naloxone 0.4 Mg/1 Ml Inj IV Q2MIN PRN Res Rate </= 8 or 02 SAT < 92% Ondansetron HCl 4 mg 10/14/20 13:56 Ondansetron 4 Mg/2 Ml Inj IV Q8H PRN Nausea And Vomiting Oxycodone/Acetaminophen 1 tab 10/14/20 13:56 Oxycodone /Acetaminophen 5-325mg Tab PO Q6H PRN Pain, Moderate (4-6) Sodium Chloride 10 ml 10/14/20 14:00 10/21/20 09:11 Sodium Chloride 0.9% 10 Ml Flush Syringe IV 10 ml BID MARTÍN Administration Sodium Chloride 10 ml 10/14/20 13:56 10/19/20 08:47 Sodium Chloride 0.9% 10 Ml Flush Syringe IV 10 ml PRN PRN Administration LINE FLUSH Spironolactone 25 mg 10/18/20 10:00 10/21/20 09:11 Spironolactone 25 Mg Tab PO 25 mg QDAY MARTÍN Administration Tamsulosin HCl 0.4 mg 10/14/20 15:00 10/21/20 09:11 Tamsulosin 0.4 Mg Cap PO 0.4 mg QDAY MARTÍN Administration
--- NOTE | 2020-10-21 11:24 | Progress Note ---
Assessment and Plan - Patient Problems (1) CHF (congestive heart failure) Current Visit: Yes Status: Acute Qualifiers: Qualified Code(s): I50.9 - Heart failure, unspecified Plan to address problem: Echocardiogram this admission demonstrates a 4 chamber dilated cardiomyopathy, ejection fraction 10-15%. There was severe TR and severe pulmonary hypertension, RSVP 71 mmHg. 07/2020 outpatient Lexiscan thallium stress test: no reversible ischemia Recommend: Continue guideline directed medical therapy for chronic systolic heart failure. Otherwise, conservative cardiac management. Subjective Date of service: 10/21/20 Principal diagnosis: Acute CHF exacerbation Interval history: Patient is resting in bed and appears comfortable. Denies shortness of breath and denies chest pain. Objective Vital Signs Temp Pulse Pulse Pulse Resp BP BP 10/21/20 09:11 78 110/60 10/21/20 09:10 78 110/60 10/21/20 08:04 96.9 F L 70 20 94/62 10/21/20 08:00 78 78 17 10/21/20 02:00 71 10/20/20 23:30 98.7 F 73 18 108/63 10/20/20 22:50 84 112/62 10/20/20 20:59 86 86 18 10/20/20 20:54 97.7 F 86 17 112/62 10/20/20 20:47 97.9 F 18 112/62 10/20/20 20:39 10/20/20 16:37 98.1 F 76 18 109/71 10/20/20 14:00 71 10/20/20 12:06 98.3 F 78 18 109/66 10/20/20 11:36 85 10/20/20 11:34 85 Pulse Ox 10/21/20 09:11 10/21/20 09:10 10/21/20 08:04 100 10/21/20 08:00 10/21/20 02:00 10/20/20 23:30 100 10/20/20 22:50 10/20/20 20:59 10/20/20 20:54 99 10/20/20 20:47 10/20/20 20:39 98 10/20/20 16:37 98 10/20/20 14:00 10/20/20 12:06 98 10/20/20 11:36 07/08/21 11:34 - Physical Examination General: No Apparent Distress HEENT: Positive: PERRL Neck: Positive: trachea midline Cardiac: Positive: Reg Rate and Rhythm Lungs: Positive: Decreased Breath Sounds Extremities: Present: Other (dry)
[2020-10-22] MEDS: LEVOTHYROXINE 125 MCG TAB PO SCH (06:23)
[2020-10-22] MEDS: FUROSEMIDE 20 MG TAB PO SCH ×2 (06:23→17:01)
--- NOTE | 2020-10-22 08:30 | Progress Note ---
Assessment and Plan Assessment and plan: Hypothyroidism Acute systolic heart failure exacerbation/biventricular heart failure Atrial fibrillation Elevated bilirubin Elevated troponin Metabolic encephalopathy. Diabetes mellitus type 2 10/18/2020. Echocardiogram reveals right ventricular systolic function is severely reduced. LVEF 10 to 15%. Paradoxical septal motion consistent with conduction abnormality. Flattened septum consistent with right ventricular pressure and volume overload. 10/19/2020. Patient had outpatient Lexiscan thallium stress test that revealed no reversible ischemia on 07/2020. Cardiology to continue with aggressive heart failure management with intravenous diuretics. Will also consider trial of milrinone per cardiology recommendations. 10/20/2020. Physical therapy recommends SNF. Continue GDMT per cardiology recommendations. Await case management arrangement for SNF placement 10/21/2020. Patient was not able to be accepted back to [facility] because Case management reports patient is n his medicare co-days and Family will need to do a Medicaid Application before pt can return. radio communication coordinator also has made attempts to reach the daughter Rebeca Ohara regarding the matter with no success. Follow-up with case management regarding discharge planning. Patient is medically stable. Cardiology recommends to continue guideline directed medical therapy for chronic systolic heart failure and conservative cardiac management. 10/22/2020. Awaiting SNF placement. History Interval history: No new issues overnight. Hospitalist Physical - Constitutional Vitals: Temp Pulse Resp BP Pulse Ox 99.2 F 79 18 97/63 93 10/22/20 00:13 10/22/20 02:00 10/22/20 00:13 10/22/20 00:13 10/22/20 00:13 General appearance: Present: no acute distress, well-nourished - EENT Eyes: Present: PERRL, EOM intact ENT: hearing intact, clear oral mucosa, dentition normal - Neck Neck: Present: supple, normal ROM - Respiratory Respiratory effort: normal Respiratory: bilateral: CTA - Cardiovascular Rhythm: regular Heart Sounds: Present: S1 & S2. Absent: gallop, rub - Extremities Extremities: no ischemia, No edema, Full ROM - Abdominal General gastrointestinal: soft, non-tender, non-distended, normal bowel sounds - Integumentary Integumentary: Present: clear, warm, dry - Neurologic Neurologic: CNII-XII intact, moves all extremities HEART Score - HEART Score EKG: Non-specific Age: > 65 Risk factors: > 3 risk factors or hx of atherosclerotic disease Troponin: Troponin T 0.053 ng/mL (0.00-0.029) H 10/14/20 07:06 Troponin: 1-3x normal limit Results - Labs CBC & Chem 7: 10/20/20 04:46 10/20/20 04:46 Labs: Laboratory Last Values WBC 5.6 K/mm3 (4.5-11.0) 10/20/20 04:46 RBC 3.36 M/mm3 (3.65-5.03) L 10/20/20 04:46 Hgb 10.7 gm/dl (11.8-15.2) L 10/20/20 04:46 Hct 32.9 % (35.5-45.6) L 10/20/20 04:46 MCV 98 fl (84-94) H 10/20/20 04:46 MCH 32 pg (28-32) 10/20/20 04:46 MCHC 33 % (32-34) 10/20/20 04:46 RDW 17.3 % (13.2-15.2) H 10/20/20 04:46 Plt Count 181 K/mm3 (140-440) 10/20/20 04:46 Lymph % (Auto) 8.6 % (13.4-35.0) L 10/15/20 04:37 [place] % (Auto) 7.5 % (0.0-7.3) H 10/15/20 04:37 Eos % (Auto) 1.0 % (0.0-4.3) 10/15/20 04:37 Baso % (Auto) 0.9 % (0.0-1.8) 10/15/20 04:37 Lymph # (Auto) Dining Room Host 10/14/20 07:06 [place] # (Auto) Dining Room Host 10/14/20 07:06 Eos # (Auto) Dining Room Host 10/14/20 07:06 Baso # (Auto) Dining Room Host 10/14/20 07:06 Seg Neutrophils % 82.0 % (40.0-70.0) H 10/15/20 04:37 Seg Neutrophils # 5.8 K/mm3 (1.8-7.7) 10/15/20 04:37 PT 19.4 Sec. (12.2-14.9) H 10/14/20 15:14 INR 1.59 (0.87-1.13) H 10/14/20 15:14 APTT 39.8 Sec. (24.2-36.6) H 10/14/20 15:14 Sodium 140 mmol/L (137-145) 10/18/20 10:15 Potassium 3.9 mmol/L (3.6-5.0) 10/18/20 10:15 Chloride 100.8 mmol/L (98-107) 10/18/20 10:15 Carbon Dioxide 27 mmol/L (22-30) 10/18/20 10:15 Anion Gap 16 mmol/L 10/18/20 10:15 BUN 21 mg/dL (9-20) H 10/18/20 10:15 Creatinine 0.8 mg/dL (0.8-1.3) 10/20/20 04:46 Estimated GFR > 60 ml/min 10/20/20 04:46 BUN/Creatinine Ratio 26 % 10/18/20 10:15 Glucose 102 mg/dL (75-100) H 10/18/20 10:15 POC Glucose 85 mg/dL (70-105) 10/22/20 08:25 Calcium 8.9 mg/dL (8.4-10.2) 10/18/20 10:15 Total Bilirubin 2.50 mg/dL (0.1-1.2) H 10/16/20 07:44 AST 17 units/L (5-40) 10/16/20 07:44 ALT 7 units/L (7-56) 10/16/20 07:44 Alkaline Phosphatase 178 units/L (35-129) H 10/16/20 07:44 Ammonia 25.0 umol/L (25-60) 10/14/20 07:06 Troponin T 0.053 ng/mL (0.00-0.029) H 10/14/20 07:06 NT-Pro-B Natriuret Pep 07463 pg/mL (0-900) H 10/14/20 07:06 Total Protein 5.9 g/dL (6.3-8.2) L 10/16/20 07:44 Albumin 3.2 g/dL (3.9-5) L 10/16/20 07:44 Albumin/Globulin Ratio 1.2 % 10/16/20 07:44 Triglycerides 45 mg/dL (2-149) 10/14/20 07:06 Cholesterol 122 mg/dL (50-199) 10/14/20 07:06 LDL Cholesterol Direct 76 mg/dL (50-130) 10/14/20 07:06 HDL Cholesterol 42 mg/dL (40-59) 10/14/20 07:06 Cholesterol/HDL Ratio 2.90 % 10/14/20 07:06 TSH 11.470 mlU/mL (0.270-4.200) H 10/14/20 07:06 Plasma/Serum Alcohol < 0.01 % (0-0.07) 10/14/20 07:06 Coronavirus (PCR) Negative (Negative) 10/15/20 11:45 Nuno/IV: Voiding Method Indwelling Catheter Active Medications - Current Medications Current Medications: Generic Name Dose Route Start Last Admin Trade Name Freq PRN Reason Stop Dose Admin Acetaminophen 650 mg 10/14/20 13:00 10/18/20 09:18 Acetaminophen 325 Mg Tab PO 650 mg Q4H PRN Administration Pain MILD(1-3)/Fever >100.5/MARTIN Albuterol 2.5 mg 10/14/20 13:56 Albuterol 2.5 Mg/3 Ml Nebu IH Q4HRT PRN Shortness Of Breath Alprazolam 0.125 mg 10/14/20 13:56 Alprazolam 0.25 Mg Tab PO Q8H PRN Agitation Apixaban 5 mg 10/14/20 15:00 10/21/20 22:46 Apixaban 5 Mg Tab PO 5 mg Q12HR MARTÍN Administration Protocol Carvedilol 6.25 mg 10/18/20 10:00 10/21/20 22:47 Carvedilol 6.25 Mg Tab PO 6.25 mg BID MARTÍN Administration Dextrose 50 ml 10/14/20 13:56 10/19/20 08:46 Dextrose 50% In Water (25gm) 50 Ml Syringe IV 50 ml Q30MIN PRN Administration Hypoglycemia Protocol Docusate Sodium 100 mg 10/14/20 22:00 10/21/20 22:46 Docusate Sodium 100 Mg Cap PO 100 mg BID MARTÍN Administration Famotidine 20 mg 10/18/20 22:00 10/21/20 22:46 Famotidine 20 Mg Tab PO 20 mg BID MARTÍN Administration Furosemide 20 mg 10/20/20 18:00 10/22/20 06:23 Furosemide 20 Mg Tab PO 20 mg 0600,1800 [facility] Administration Insulin Human Lispro 0 unit 10/14/20 16:30 10/21/20 22:47 Insulin Lispro 100 Unit/Ml SUB-Q Not Given ACHS [facility] Protocol Levothyroxine Sodium 125 mcg 10/15/20 06:00 10/22/20 06:23 Levothyroxine 125 Mcg Tab PO 125 mcg DAILY@0600 [facility] Administration Lisinopril 5 mg 10/19/20 10:00 10/21/20 09:10 Lisinopril 5 Mg Tab PO 5 mg QDAY [facility] Administration Morphine Sulfate 2 mg 10/14/20 13:56 Morphine 2 Mg/1 Ml Inj IV Q4H PRN Pain, Moderate (4-6) Naloxone HCl 0.1 mg 10/14/20 13:56 Naloxone 0.4 Mg/1 Ml Inj IV Q2MIN PRN Res Rate </= 8 or 02 SAT < 92% Ondansetron HCl 4 mg 10/14/20 13:56 Ondansetron 4 Mg/2 Ml Inj IV Q8H PRN Nausea And Vomiting Oxycodone/Acetaminophen 1 tab 10/14/20 13:56 Oxycodone /Acetaminophen 5-325mg Tab PO Q6H PRN Pain, Moderate (4-6) Sodium Chloride 10 ml 10/14/20 14:00 10/21/20 22:47 Sodium Chloride 0.9% 10 Ml Flush Syringe IV 10 ml BID MARTÍN Administration Sodium Chloride 10 ml 10/14/20 13:56 10/19/20 08:47 Sodium Chloride 0.9% 10 Ml Flush Syringe IV 10 ml PRN PRN Administration LINE FLUSH Spironolactone 25 mg 10/18/20 10:00 10/21/20 09:11 Spironolactone 25 Mg Tab PO 25 mg QDAY [facility] Administration Tamsulosin HCl 0.4 mg 10/14/20 15:00 10/21/20 09:11 Tamsulosin 0.4 Mg Cap PO 0.4 mg QDAY [facility] Administration Nutrition/Malnutrition Assess - Dietary Evaluation Nutrition/Malnutrition Findings: Nutrition Notes Start: 10/21/20 12:51 Freq: Status: Active Protocol: Document 10/21/20 12:51 (Rec: 10/21/20 12:54 MONSE [id number]) Nutrition Notes Need for Assessment generated from: LOS Initial or Follow up Assessment Current Diagnosis Diabetes,Heart Failure Other Pertinent Diagnosis SIRS Current Diet Consistent CHO Labs/Tests Reviewed Pertinent Medications Lasix Height 5 ft 10 in Weight 85.4 kg [place] Body Weight (kg) 75.45 BMI 27.0 Weight Status Overweight Subjective/Other Information Screen for LOS. Pt with very inconsistent intakes. He is willing to drink Glucerna BID. Burn Absent Trauma Absent GI Symptoms None Current % PO Poor (25-49%) Minimum of two criteria No physical signs of malnutrition #1 Nutrition Diagnosis Inadequate oral intake Etiology advanced age As Evidenced by Signs and Symptoms pt with inconsistent intakes Is patient on ventilator? No Is Patient Ambulatory and/or Out of Bed No REE-([facility]-confined to bed) 1944.096 Calculation Used for Recommendations [facility] Additional Notes Protein: (1-1.2g/kg) 85-102g Fluid: 1 ml/kcal or per MD Nutrition Intervention Change Diet Order: Continue Add Supplement/Snack (indicate name/kcal Glucerna BID /protein ) Provides kCal: 440 Provides Protein (gm) 20 Goal #1 Meet at least 75% of protein and energy needs via PO and ONS intakes Anticipated Discharge Needs: Cardiac, consistent carb Follow-Up By: 10/25/20 Additional Comments FU for intakes and ONS tolerance
[2020-10-22] MEDS: DOCUSATE SODIUM 100 MG CAP PO SCH ×2 (09:39→21:37)
[2020-10-22] MEDS: TAMSULOSIN 0.4 MG CAP PO SCH (09:39)
--- NOTE | 2020-10-22 09:39 | Progress Note ---
Assessment and Plan 1. Chronic combined systolic and diastolic heart failure 2. Dilated cardiomyopathy 3. Chronic atrial fibrillation with a controlled ventricular response 4. Hypothyroidism 5. Type 2 diabetes mellitus 6. Essential hypertension 7. Dementia Plan Patient is currently stable left ventricular ejection fraction is 10 to 15% patient to continue treatment as per guideline directed medical therapy. Subjective Date of service: 10/22/20 Principal diagnosis: Acute CHF exacerbation Interval history: Patient is demented Objective Vital Signs Temp Pulse Pulse Pulse Resp BP BP 10/22/20 08:09 98.7 F 75 18 102/62 10/22/20 04:47 98.6 F 72 19 103/68 10/22/20 02:00 79 10/22/20 00:13 99.2 F 79 18 97/63 10/21/20 22:47 78 102/66 10/21/20 21:19 10/21/20 20:24 99.2 F 78 18 102/66 10/21/20 20:00 78 78 18 10/21/20 16:59 78 17 108/67 10/21/20 16:34 97.1 F L 83 14 93/61 10/21/20 14:00 67 10/21/20 11:45 97.6 F 75 14 91/57 10/21/20 10:00 Pulse Ox 10/22/20 08:09 95 10/22/20 04:47 95 10/22/20 02:00 10/22/20 00:13 93 10/21/20 22:47 10/21/20 21:19 100 10/21/20 20:24 91 10/21/20 20:00 10/21/20 16:59 97 10/21/20 16:34 96 10/21/20 14:00 10/21/20 11:45 77 L 10/21/20 10:00 95 - Physical Examination General: No Apparent Distress HEENT: Positive: PERRL Neck: Positive: trachea midline Cardiac: Positive: Regular Rate, S1/S2, S3, Dilated, Laterally Displaced Lungs: Positive: clear to auscultation, No Wheeze, Rales, Rhonchi (Demented, no focal deficits) Abdomen: Positive: Soft, Tender (NO) Extremities: Present: +1 Edema, Other (dry)
[2020-10-22] MEDS: carvediloL 6.25 MG TAB PO SCH ×2 (09:40→21:36)
[2020-10-22] MEDS: SPIRONOLACTONE 25 MG TAB PO SCH (09:40)
[2020-10-22] MEDS: FAMOTIDINE 20 MG TAB PO SCH ×2 (09:40→21:37)
[2020-10-22] MEDS: APIXABAN 5 MG TAB PO SCH ×2 (09:40→21:37)
[2020-10-22] MEDS: LISINOPRIL 5 MG TAB PO SCH (09:41)
[2020-10-22] MEDS: INSULIN LISPRO 100 UNIT/ML SUB-Q SCH ×4 (09:41→21:24)
[2020-10-23] MEDS: LEVOTHYROXINE 125 MCG TAB PO SCH (05:19)
[2020-10-23] MEDS: FUROSEMIDE 20 MG TAB PO SCH ×2 (05:19→18:21)
--- NOTE | 2020-10-23 09:50 | Progress Note ---
Assessment and Plan 1. Chronic combined systolic and diastolic heart failure 2. Dilated cardiomyopathy 3. Chronic atrial fibrillation with a controlled ventricular response 4. Hypothyroidism 5. Type 2 diabetes mellitus 6. Essential hypertension 7. Dementia Plan Patient is currently stable left ventricular ejection fraction is 10 to 15% patient to continue treatment as per guideline directed medical therapy. Subjective Date of service: 10/23/20 Principal diagnosis: Acute CHF exacerbation Interval history: Patient is demented history unreliable Objective Vital Signs Temp Pulse Resp BP Pulse Ox 10/23/20 07:32 97.3 F L 72 18 109/68 93 10/23/20 03:48 98.6 F 72 18 105/69 94 10/22/20 23:28 75 94 10/22/20 21:36 90 111/70 10/22/20 19:30 98.2 F 79 18 111/77 95 10/22/20 19:28 79 10/22/20 16:13 99.2 F 81 18 104/68 93 10/22/20 14:00 67 10/22/20 11:07 98.0 F 87 18 106/72 93 - Physical Examination General: No Apparent Distress HEENT: Positive: PERRL Neck: Positive: trachea midline Cardiac: Positive: Regular Rate, S1/S2, S3, PMI, Dilated, Laterally Displaced Lungs: Positive: clear to auscultation, No Wheeze, Rales, Rhonchi Neuro: Positive: Other (Patient demented no focal motor deficits.) Abdomen: Positive: Soft, Tender (NO) Extremities: Present: +1 Edema, Other (dry)
--- NOTE | 2020-10-23 09:54 | Progress Note ---
Assessment and Plan Assessment and plan: Hypothyroidism Acute systolic heart failure exacerbation/biventricular heart failure Atrial fibrillation Elevated bilirubin Elevated troponin Metabolic encephalopathy. Diabetes mellitus type 2 10/18/2020. Echocardiogram reveals right ventricular systolic function is severely reduced. LVEF 10 to 15%. Paradoxical septal motion consistent with conduction abnormality. Flattened septum consistent with right ventricular pressure and volume overload. 10/19/2020. Patient had outpatient Lexiscan thallium stress test that revealed no reversible ischemia on 07/2020. Cardiology to continue with aggressive heart failure management with intravenous diuretics. Will also consider trial of milrinone per cardiology recommendations. 10/20/2020. Physical therapy recommends SNF. Continue GDMT per cardiology recommendations. Await case management arrangement for SNF placement 10/21/2020. Patient was not able to be accepted back to [facility] because Case management reports patient is n his medicare co-days and Family will need to do a Medicaid Application before pt can return. catering coordinator also has made attempts to reach the daughter Rebeca Ohara regarding the matter with no success. Follow-up with case management regarding discharge planning. Patient is medically stable. Cardiology recommends to continue guideline directed medical therapy for chronic systolic heart failure and conservative cardiac management. 10/22/2020. Awaiting SNF placement. 10/23/2020. Awaiting SNF placement. History Interval history: No new issues overnight. Hospitalist Physical - Constitutional Vitals: Temp Pulse Resp BP Pulse Ox 97.3 F L 72 18 109/68 93 10/23/20 07:32 10/23/20 07:32 10/23/20 07:32 10/23/20 07:32 10/23/20 07:32 General appearance: Present: no acute distress, well-nourished - EENT Eyes: Present: PERRL, EOM intact ENT: hearing intact, clear oral mucosa, dentition normal - Neck Neck: Present: supple, normal ROM - Respiratory Respiratory effort: normal Respiratory: bilateral: CTA - Cardiovascular Rhythm: regular Heart Sounds: Present: S1 & S2. Absent: gallop, rub - Extremities Extremities: no ischemia, No edema, Full ROM - Abdominal General gastrointestinal: soft, non-tender, non-distended, normal bowel sounds - Integumentary Integumentary: Present: clear, warm, dry - Neurologic Neurologic: CNII-XII intact, moves all extremities HEART Score - HEART Score EKG: Non-specific Age: > 65 Risk factors: > 3 risk factors or hx of atherosclerotic disease Troponin: Troponin T 0.053 ng/mL (0.00-0.029) H 10/14/20 07:06 Troponin: 1-3x normal limit Results - Labs CBC & Chem 7: 10/20/20 04:46 10/20/20 04:46 Labs: Laboratory Last Values WBC 5.6 K/mm3 (4.5-11.0) 10/20/20 04:46 RBC 3.36 M/mm3 (3.65-5.03) L 10/20/20 04:46 Hgb 10.7 gm/dl (11.8-15.2) L 10/20/20 04:46 Hct 32.9 % (35.5-45.6) L 10/20/20 04:46 MCV 98 fl (84-94) H 10/20/20 04:46 MCH 32 pg (28-32) 10/20/20 04:46 MCHC 33 % (32-34) 10/20/20 04:46 RDW 17.3 % (13.2-15.2) H 10/20/20 04:46 Plt Count 181 K/mm3 (140-440) 10/20/20 04:46 Lymph % (Auto) 8.6 % (13.4-35.0) L 10/15/20 04:37 [place] % (Auto) 7.5 % (0.0-7.3) H 10/15/20 04:37 Eos % (Auto) 1.0 % (0.0-4.3) 10/15/20 04:37 Baso % (Auto) 0.9 % (0.0-1.8) 10/15/20 04:37 Lymph # (Auto) Casting Machine Adjuster 10/14/20 07:06 [place] # (Auto) Casting Machine Adjuster 10/14/20 07:06 Eos # (Auto) Casting Machine Adjuster 10/14/20 07:06 Baso # (Auto) Casting Machine Adjuster 10/14/20 07:06 Seg Neutrophils % 82.0 % (40.0-70.0) H 10/15/20 04:37 Seg Neutrophils # 5.8 K/mm3 (1.8-7.7) 10/15/20 04:37 PT 19.4 Sec. (12.2-14.9) H 10/14/20 15:14 INR 1.59 (0.87-1.13) H 10/14/20 15:14 APTT 39.8 Sec. (24.2-36.6) H 10/14/20 15:14 Sodium 140 mmol/L (137-145) 10/18/20 10:15 Potassium 3.9 mmol/L (3.6-5.0) 10/18/20 10:15 Chloride 100.8 mmol/L (98-107) 10/18/20 10:15 Carbon Dioxide 27 mmol/L (22-30) 10/18/20 10:15 Anion Gap 16 mmol/L 10/18/20 10:15 BUN 21 mg/dL (9-20) H 10/18/20 10:15 Creatinine 0.8 mg/dL (0.8-1.3) 10/20/20 04:46 Estimated GFR > 60 ml/min 10/20/20 04:46 BUN/Creatinine Ratio 26 % 10/18/20 10:15 Glucose 102 mg/dL (75-100) H 10/18/20 10:15 POC Glucose 83 mg/dL (70-105) 10/23/20 07:40 Calcium 8.9 mg/dL (8.4-10.2) 10/18/20 10:15 Total Bilirubin 2.50 mg/dL (0.1-1.2) H 10/16/20 07:44 AST 17 units/L (5-40) 10/16/20 07:44 ALT 7 units/L (7-56) 10/16/20 07:44 Alkaline Phosphatase 178 units/L (35-129) H 10/16/20 07:44 Ammonia 25.0 umol/L (25-60) 10/14/20 07:06 Troponin T 0.053 ng/mL (0.00-0.029) H 10/14/20 07:06 NT-Pro-B Natriuret Pep 84407 pg/mL (0-900) H 10/14/20 07:06 Total Protein 5.9 g/dL (6.3-8.2) L 10/16/20 07:44 Albumin 3.2 g/dL (3.9-5) L 10/16/20 07:44 Albumin/Globulin Ratio 1.2 % 10/16/20 07:44 Triglycerides 45 mg/dL (2-149) 10/14/20 07:06 Cholesterol 122 mg/dL (50-199) 10/14/20 07:06 LDL Cholesterol Direct 76 mg/dL (50-130) 10/14/20 07:06 HDL Cholesterol 42 mg/dL (40-59) 10/14/20 07:06 Cholesterol/HDL Ratio 2.90 % 10/14/20 07:06 TSH 11.470 mlU/mL (0.270-4.200) H 10/14/20 07:06 Plasma/Serum Alcohol < 0.01 % (0-0.07) 10/14/20 07:06 Coronavirus (PCR) Negative (Negative) 10/15/20 11:45 Nuno/IV: Voiding Method Indwelling Catheter Active Medications - Current Medications Current Medications: Generic Name Dose Route Start Last Admin Trade Name Freq PRN Reason Stop Dose Admin Acetaminophen 650 mg 10/14/20 13:00 10/18/20 09:18 Acetaminophen 325 Mg Tab PO 650 mg Q4H PRN Administration Pain MILD(1-3)/Fever >100.5/MARTIN Albuterol 2.5 mg 10/14/20 13:56 Albuterol 2.5 Mg/3 Ml Nebu IH Q4HRT PRN Shortness Of Breath Alprazolam 0.125 mg 10/14/20 13:56 Alprazolam 0.25 Mg Tab PO Q8H PRN Agitation Apixaban 5 mg 10/14/20 15:00 10/22/20 21:37 Apixaban 5 Mg Tab PO 5 mg Q12HR MARTÍN Administration Protocol Carvedilol 6.25 mg 10/18/20 10:00 10/22/20 21:36 Carvedilol 6.25 Mg Tab PO 6.25 mg BID MARTÍN Administration Dextrose 50 ml 10/14/20 13:56 10/19/20 08:46 Dextrose 50% In Water (25gm) 50 Ml Syringe IV 50 ml Q30MIN PRN Administration Hypoglycemia Protocol Docusate Sodium 100 mg 10/14/20 22:00 10/22/20 21:37 Docusate Sodium 100 Mg Cap PO 100 mg BID MARTÍN Administration Famotidine 20 mg 10/18/20 22:00 10/22/20 21:37 Famotidine 20 Mg Tab PO 20 mg BID [facility] Administration Furosemide 20 mg 10/20/20 18:00 10/23/20 05:19 Furosemide 20 Mg Tab PO 20 mg 0600,1800 [facility] Administration Insulin Human Lispro 0 unit 10/14/20 16:30 10/22/20 21:24 Insulin Lispro 100 Unit/Ml SUB-Q Not Given ACHS [facility] Protocol Levothyroxine Sodium 125 mcg 10/15/20 06:00 10/23/20 05:19 Levothyroxine 125 Mcg Tab PO 125 mcg DAILY@0600 [facility] Administration Lisinopril 5 mg 10/19/20 10:00 10/22/20 09:41 Lisinopril 5 Mg Tab PO Not Given QDAY [facility] Morphine Sulfate 2 mg 10/14/20 13:56 Morphine 2 Mg/1 Ml Inj IV Q4H PRN Pain, Moderate (4-6) Naloxone HCl 0.1 mg 10/14/20 13:56 Naloxone 0.4 Mg/1 Ml Inj IV Q2MIN PRN Res Rate </= 8 or 02 SAT < 92% Ondansetron HCl 4 mg 10/14/20 13:56 Ondansetron 4 Mg/2 Ml Inj IV Q8H PRN Nausea And Vomiting Oxycodone/Acetaminophen 1 tab 10/14/20 13:56 Oxycodone /Acetaminophen 5-325mg Tab PO Q6H PRN Pain, Moderate (4-6) Sodium Chloride 10 ml 10/14/20 14:00 10/22/20 21:37 Sodium Chloride 0.9% 10 Ml Flush Syringe IV 10 ml BID MARTÍN Administration Sodium Chloride 10 ml 10/14/20 13:56 10/19/20 08:47 Sodium Chloride 0.9% 10 Ml Flush Syringe IV 10 ml PRN PRN Administration LINE FLUSH Spironolactone 25 mg 10/18/20 10:00 10/22/20 09:40 Spironolactone 25 Mg Tab PO Not Given QDAY [facility] Tamsulosin HCl 0.4 mg 10/14/20 15:00 10/22/20 09:39 Tamsulosin 0.4 Mg Cap PO 0.4 mg QDAY [facility] Administration Nutrition/Malnutrition Assess - Dietary Evaluation Nutrition/Malnutrition Findings: Nutrition Notes Start: 10/21/20 12:51 Freq: Status: Active Protocol: Document 10/21/20 12:51 MK (Rec: 10/21/20 12:54 [id number]) Nutrition Notes Need for Assessment generated from: LOS Initial or Follow up Assessment Current Diagnosis Diabetes,Heart Failure Other Pertinent Diagnosis SIRS Current Diet Consistent CHO Labs/Tests Reviewed Pertinent Medications Lasix Height 5 ft 10 in Weight 85.4 kg [place] Body Weight (kg) 75.45 BMI 27.0 Weight Status Overweight Subjective/Other Information Screen for LOS. Pt with very inconsistent intakes. He is willing to drink Glucerna BID. Burn Absent Trauma Absent GI Symptoms None Current % PO Poor (25-49%) Minimum of two criteria No physical signs of malnutrition #1 Nutrition Diagnosis Inadequate oral intake Etiology advanced age As Evidenced by Signs and Symptoms pt with inconsistent intakes Is patient on ventilator? No Is Patient Ambulatory and/or [facility] Calculation Used for Recommendations [facility] Additional Notes Protein: (1-1.2g/kg) 85-102g Fluid: 1 ml/kcal or per MD Nutrition Intervention Change Diet Order: Continue Add Supplement/Snack (indicate name/kcal Glucerna BID /protein ) Provides kCal: 440 Provides Protein (gm) 20 Goal #1 Meet at least 75% of protein and energy needs via PO and ONS intakes Anticipated Discharge Needs: Cardiac, consistent carb Follow-Up By: 10/25/20 Additional Comments FU for intakes and ONS tolerance
[2020-10-23] MEDS: INSULIN LISPRO 100 UNIT/ML SUB-Q SCH ×4 (10:31→21:24)
[2020-10-23] MEDS: DOCUSATE SODIUM 100 MG CAP PO SCH ×2 (10:33→21:23)
[2020-10-23] MEDS: FAMOTIDINE 20 MG TAB PO SCH ×2 (10:33→21:23)
[2020-10-23] MEDS: carvediloL 6.25 MG TAB PO SCH ×2 (10:33→21:23)
[2020-10-23] MEDS: TAMSULOSIN 0.4 MG CAP PO SCH (10:35)
[2020-10-23] MEDS: LISINOPRIL 5 MG TAB PO SCH (10:35)
[2020-10-23] MEDS: SPIRONOLACTONE 25 MG TAB PO SCH (10:35)
[2020-10-23] MEDS: APIXABAN 5 MG TAB PO SCH ×2 (10:35→21:23)
[2020-10-24] MEDS: FUROSEMIDE 20 MG TAB PO SCH ×2 (05:21→17:25)
[2020-10-24] MEDS: LEVOTHYROXINE 125 MCG TAB PO SCH (05:21)
--- NOTE | 2020-10-24 07:57 | Progress Note ---
Assessment and Plan Assessment and plan: Hypothyroidism Acute systolic heart failure exacerbation/biventricular heart failure Atrial fibrillation Elevated bilirubin Elevated troponin Metabolic encephalopathy. Diabetes mellitus type 2 10/18/2020. Echocardiogram reveals right ventricular systolic function is severely reduced. LVEF 10 to 15%. Paradoxical septal motion consistent with conduction abnormality. Flattened septum consistent with right ventricular pressure and volume overload. 10/19/2020. Patient had outpatient Lexiscan thallium stress test that revealed no reversible ischemia on 07/2020. Cardiology to continue with aggressive heart failure management with intravenous diuretics. Will also consider trial of milrinone per cardiology recommendations. 10/20/2020. Physical therapy recommends SNF. Continue GDMT per cardiology recommendations. Await case management arrangement for SNF placement 10/21/2020. Patient was not able to be accepted back to [facility] because Case management reports patient is n his medicare co-days and Family will need to do a Medicaid Application before pt can return. relations coordinator also has made attempts to reach the daughter Rebeca Ohara regarding the matter with no success. Follow-up with case management regarding discharge planning. Patient is medically stable. Cardiology recommends to continue guideline directed medical therapy for chronic systolic heart failure and conservative cardiac management. 10/22/2020. Awaiting SNF placement. 10/23/2020. Awaiting SNF placement. 10/24/2020. Case management reports that the plan is for the patient to return to [facility] SNF. Discharge barriers include Medicaid application needs to be completed at SNF. Unfortunately, the daughter resides in [place] and completing the application has been problematic. History Interval history: No new issues overnight. Hospitalist Physical - Constitutional Vitals: Temp Pulse Resp BP Pulse Ox 97.6 F 69 17 100/63 95 10/24/20 03:02 10/24/20 03:02 10/24/20 03:02 10/24/20 03:02 10/24/20 03:02 General appearance: Present: no acute distress, well-nourished - EENT Eyes: Present: PERRL, EOM intact ENT: hearing intact, clear oral mucosa, dentition normal - Neck Neck: Present: supple, normal ROM - Respiratory Respiratory effort: normal Respiratory: bilateral: CTA - Cardiovascular Rhythm: regular Heart Sounds: Present: S1 & S2. Absent: gallop, rub - Extremities Extremities: no ischemia, No edema, Full ROM - Abdominal General gastrointestinal: soft, non-tender, non-distended, normal bowel sounds - Integumentary Integumentary: Present: clear, warm, dry - Neurologic Neurologic: CNII-XII intact, moves all extremities HEART Score - HEART Score EKG: Non-specific Age: > 65 Risk factors: > 3 risk factors or hx of atherosclerotic disease Troponin: Troponin T 0.053 ng/mL (0.00-0.029) H 10/14/20 07:06 Troponin: 1-3x normal limit Results - Labs CBC & Chem 7: 10/20/20 04:46 10/20/20 04:46 Labs: Laboratory Last Values WBC 5.6 K/mm3 (4.5-11.0) 10/20/20 04:46 RBC 3.36 M/mm3 (3.65-5.03) L 10/20/20 04:46 Hgb 10.7 gm/dl (11.8-15.2) L 10/20/20 04:46 Hct 32.9 % (35.5-45.6) L 10/20/20 04:46 MCV 98 fl (84-94) H 10/20/20 04:46 MCH 32 pg (28-32) 10/20/20 04:46 MCHC 33 % (32-34) 10/20/20 04:46 RDW 17.3 % (13.2-15.2) H 10/20/20 04:46 Plt Count 181 K/mm3 (140-440) 10/20/20 04:46 Lymph % (Auto) 8.6 % (13.4-35.0) L 10/15/20 04:37 [place] % (Auto) 7.5 % (0.0-7.3) H 10/15/20 04:37 Eos % (Auto) 1.0 % (0.0-4.3) 10/15/20 04:37 Baso % (Auto) 0.9 % (0.0-1.8) 10/15/20 04:37 Lymph # (Auto) Photographer Motion Picture 10/14/20 07:06 [place] # (Auto) Photographer Motion Picture 10/14/20 07:06 Eos # (Auto) Photographer Motion Picture 10/14/20 07:06 Baso # (Auto) Photographer Motion Picture 10/14/20 07:06 Seg Neutrophils % 82.0 % (40.0-70.0) H 10/15/20 04:37 Seg Neutrophils # 5.8 K/mm3 (1.8-7.7) 10/15/20 04:37 PT 19.4 Sec. (12.2-14.9) H 10/14/20 15:14 INR 1.59 (0.87-1.13) H 10/14/20 15:14 APTT 39.8 Sec. (24.2-36.6) H 10/14/20 15:14 Sodium 140 mmol/L (137-145) 10/18/20 10:15 Potassium 3.9 mmol/L (3.6-5.0) 10/18/20 10:15 Chloride 100.8 mmol/L (98-107) 10/18/20 10:15 Carbon Dioxide 27 mmol/L (22-30) 10/18/20 10:15 Anion Gap 16 mmol/L 10/18/20 10:15 BUN 21 mg/dL (9-20) H 10/18/20 10:15 Creatinine 0.8 mg/dL (0.8-1.3) 10/20/20 04:46 Estimated GFR > 60 ml/min 10/20/20 04:46 BUN/Creatinine Ratio 26 % 10/18/20 10:15 Glucose 102 mg/dL (75-100) H 10/18/20 10:15 POC Glucose 124 mg/dL (70-105) H 10/23/20 20:11 Calcium 8.9 mg/dL (8.4-10.2) 10/18/20 10:15 Total Bilirubin 2.50 mg/dL (0.1-1.2) H 10/16/20 07:44 AST 17 units/L (5-40) 10/16/20 07:44 ALT 7 units/L (7-56) 10/16/20 07:44 Alkaline Phosphatase 178 units/L (35-129) H 10/16/20 07:44 Ammonia 25.0 umol/L (25-60) 10/14/20 07:06 Troponin T 0.053 ng/mL (0.00-0.029) H 10/14/20 07:06 NT-Pro-B Natriuret Pep 47213 pg/mL (0-900) H 10/14/20 07:06 Total Protein 5.9 g/dL (6.3-8.2) L 10/16/20 07:44 Albumin 3.2 g/dL (3.9-5) L 10/16/20 07:44 Albumin/Globulin Ratio 1.2 % 10/16/20 07:44 Triglycerides 45 mg/dL (2-149) 10/14/20 07:06 Cholesterol 122 mg/dL (50-199) 10/14/20 07:06 LDL Cholesterol Direct 76 mg/dL (50-130) 10/14/20 07:06 HDL Cholesterol 42 mg/dL (40-59) 10/14/20 07:06 Cholesterol/HDL Ratio 2.90 % 10/14/20 07:06 TSH 11.470 mlU/mL (0.270-4.200) H 10/14/20 07:06 Plasma/Serum Alcohol < 0.01 % (0-0.07) 10/14/20 07:06 Coronavirus (PCR) Negative (Negative) 10/15/20 11:45 Nuno/IV: Voiding Method Indwelling Catheter Active Medications - Current Medications Current Medications: Generic Name Dose Route Start Last Admin Trade Name Freq PRN Reason Stop Dose Admin Acetaminophen 650 mg 10/14/20 13:00 10/18/20 09:18 Acetaminophen 325 Mg Tab PO 650 mg Q4H PRN Administration Pain MILD(1-3)/Fever >100.5/MARTIN Albuterol 2.5 mg 10/14/20 13:56 Albuterol 2.5 Mg/3 Ml Nebu IH Q4HRT PRN Shortness Of Breath Alprazolam 0.125 mg 10/14/20 13:56 Alprazolam 0.25 Mg Tab PO Q8H PRN Agitation Apixaban 5 mg 10/14/20 15:00 10/23/20 21:23 Apixaban 5 Mg Tab PO 5 mg Q12HR MARTÍN Administration Protocol Carvedilol 6.25 mg 10/18/20 10:00 10/23/20 21:23 Carvedilol 6.25 Mg Tab PO 6.25 mg BID MARTÍN Administration Dextrose 50 ml 10/14/20 13:56 10/19/20 08:46 Dextrose 50% In Water (25gm) 50 Ml Syringe IV 50 ml Q30MIN PRN Administration Hypoglycemia Protocol Docusate Sodium 100 mg 10/14/20 22:00 10/23/20 21:23 Docusate Sodium 100 Mg Cap PO 100 mg BID MARTÍN Administration Famotidine 20 mg 10/18/20 22:00 10/23/20 21:23 Famotidine 20 Mg Tab PO 20 mg BID MARTÍN Administration Furosemide 20 mg 10/20/20 18:00 10/24/20 05:21 Furosemide 20 Mg Tab PO 20 mg 0600,1800 MARTÍN Administration Insulin Human Lispro 0 unit 10/14/20 16:30 10/23/20 21:24 Insulin Lispro 100 Unit/Ml SUB-Q Not Given [facility] Protocol Levothyroxine Sodium 125 mcg 10/15/20 06:00 10/24/20 05:21 Levothyroxine 125 Mcg Tab PO 125 mcg DAILY@0600 MARTÍN Administration Lisinopril 5 mg 10/19/20 10:00 10/23/20 10:35 Lisinopril 5 Mg Tab PO 5 mg QDAY MARTÍN Administration Morphine Sulfate 2 mg 10/14/20 13:56 Morphine 2 Mg/1 Ml Inj IV Q4H PRN Pain, Moderate (4-6) Naloxone HCl 0.1 mg 10/14/20 13:56 Naloxone 0.4 Mg/1 Ml Inj IV Q2MIN PRN Res Rate </= 8 or 02 SAT < 92% Ondansetron HCl 4 mg 10/14/20 13:56 Ondansetron 4 Mg/2 Ml Inj IV Q8H PRN Nausea And Vomiting Oxycodone/Acetaminophen 1 tab 10/14/20 13:56 Oxycodone /Acetaminophen 5-325mg Tab PO Q6H PRN Pain, Moderate (4-6) Sodium Chloride 10 ml 10/14/20 14:00 10/23/20 21:23 Sodium Chloride 0.9% 10 Ml Flush Syringe IV 10 ml BID MARTÍN Administration Sodium Chloride 10 ml 10/14/20 13:56 10/19/20 08:47 Sodium Chloride 0.9% 10 Ml Flush Syringe IV 10 ml PRN PRN Administration LINE FLUSH Spironolactone 25 mg 10/18/20 10:00 10/23/20 10:35 Spironolactone 25 Mg Tab PO 25 mg QDAY MARTÍN Administration Tamsulosin HCl 0.4 mg 10/14/20 15:00 10/23/20 10:35 Tamsulosin 0.4 Mg Cap PO 0.4 mg QDAY MARTÍN Administration Nutrition/Malnutrition Assess - Dietary Evaluation Nutrition/Malnutrition Findings: Nutrition Notes Start: 10/21/20 12:51 Freq: Status: Active Protocol: Document 10/21/20 12:51 (Rec: 10/21/20 12:54 MK [id number]) Nutrition Notes Need for Assessment generated from: LOS Initial or Follow up Assessment Current Diagnosis Diabetes,Heart Failure Other Pertinent Diagnosis SIRS Current Diet Consistent CHO Labs/Tests Reviewed Pertinent Medications Lasix Height 5 ft 10 in Weight 85.4 kg [place] Body Weight (kg) 75.45 BMI 27.0 Weight Status Overweight Subjective/Other Information Screen for LOS. Pt with very inconsistent intakes. He is willing to drink Glucerna BID. Burn Absent Trauma Absent GI Symptoms None Current % PO Poor (25-49%) Minimum of two criteria No physical signs of malnutrition #1 Nutrition Diagnosis Inadequate oral intake Etiology advanced age As Evidenced by Signs and Symptoms pt with inconsistent intakes Is patient on ventilator? No Is Patient Ambulatory and/or Out of Bed No REE-([facility]-confined to bed) 1944.096 Calculation Used for Recommendations [facility] Additional Notes Protein: (1-1.2g/kg) 85-102g Fluid: 1 ml/kcal or per MD Nutrition Intervention Change Diet Order: Continue Add Supplement/Snack (indicate name/kcal Glucerna BID /protein ) Provides kCal: 440 Provides Protein (gm) 20 Goal #1 Meet at least 75% of protein and energy needs via PO and ONS intakes Anticipated Discharge Needs: Cardiac, consistent carb Follow-Up By: 10/25/20 Additional Comments FU for intakes and ONS tolerance
[2020-10-24] MEDS: INSULIN LISPRO 100 UNIT/ML SUB-Q SCH ×4 (09:02→22:17)
[2020-10-24] MEDS: DOCUSATE SODIUM 100 MG CAP PO SCH ×2 (12:04→22:15)
[2020-10-24] MEDS: FAMOTIDINE 20 MG TAB PO SCH ×2 (12:04→22:15)
[2020-10-24] MEDS: LISINOPRIL 5 MG TAB PO SCH (12:04)
[2020-10-24] MEDS: TAMSULOSIN 0.4 MG CAP PO SCH (12:04)
[2020-10-24] MEDS: APIXABAN 5 MG TAB PO SCH ×2 (12:06→22:16)
[2020-10-24] MEDS: SPIRONOLACTONE 25 MG TAB PO SCH (12:06)
[2020-10-24] MEDS: carvediloL 6.25 MG TAB PO SCH ×2 (12:06→22:16)
--- NOTE | 2020-10-24 12:06 | Progress Note ---
Assessment and Plan - Patient Problems (1) Dilated cardiomyopathy Current Visit: Yes Status: Acute Plan to address problem: We will continue medical therapy as previously outlined for chronic systolic left ventricular failure. Subjective Date of service: 10/24/20 Principal diagnosis: Acute CHF exacerbation Interval history: Patient looks and feels comfortable, no acute distress. No new cardiac complaints. Objective Vital Signs Temp Pulse Resp BP Pulse Ox 10/24/20 07:56 98.7 F 69 18 105/74 100 10/24/20 03:02 97.6 F 69 17 100/63 95 10/24/20 02:00 71 10/23/20 23:07 97.1 F L 75 19 101/62 93 10/23/20 19:02 98.2 F 74 17 116/67 91 10/23/20 16:04 97.9 F 76 18 103/71 94 10/23/20 14:00 102 H - Physical Examination General: No Apparent Distress HEENT: Positive: PERRL Neck: Positive: trachea midline Cardiac: Positive: Reg Rate and Rhythm Lungs: Positive: Decreased Breath Sounds Neuro: Positive: Grossly Intact Abdomen: Positive: Soft, Tender (NO) Skin: Positive: Clear Extremities: Present: Other (dry). Absent: edema
[2020-10-25] MEDS: FUROSEMIDE 20 MG TAB PO SCH (06:49)
[2020-10-25] MEDS: LEVOTHYROXINE 125 MCG TAB PO SCH (06:49)
[2020-10-25] MEDS: INSULIN LISPRO 100 UNIT/ML SUB-Q SCH ×2 (07:54→12:55)
[2020-10-25 08:15] LABS: Basophils # (Auto) 0.1 K/mm3 (0.0-0.1); Basophils % (Auto) 1.2 % (0.0-1.8); Eosinophils # (Auto) 0.1 K/mm3 (0.0-0.4); Eosinophils % (Auto) 2.3 % (0.0-4.3); Hematocrit 31.9 % (35.5-45.6); Hemoglobin 10.6 gm/dl (11.8-15.2); Lymphocytes # (Auto) 0.7 K/mm3 (1.2-5.4); Mean Corpuscular HGB Conc 33 % (32-34); Mean Corpuscular Volume 97 fl (84-94); Monocytes # (Auto) 0.4 K/mm3 (0.0-0.8); Monocytes % (Auto) 8.1 % (0.0-7.3); Platelet Count 196 K/mm3 (140-440); Red Blood Count 3.28 M/mm3 (3.65-5.03); Red Cell Distribution Width 16.7 % (13.2-15.2)
[2020-10-25 08:22] LABS: BUN/Creatinine Ratio 29; Blood Urea Nitrogen 23 mg/dL (9-20); Calcium 8.3 mg/dL (8.4-10.2); Hemolysis Index 1
--- NOTE | 2020-10-25 09:51 | Progress Note ---
Assessment and Plan - Patient Problems (1) CHF (congestive heart failure) Current Visit: Yes Status: Acute Qualifiers: Qualified Code(s): I50.9 - Heart failure, unspecified Plan to address problem: Echocardiogram this admission demonstrates a 4 chamber dilated cardiomyopathy, ejection fraction 10-15%. There was severe TR and severe pulmonary hypertension, RSVP 71 mmHg. 07/2020 outpatient Lexiscan thallium stress test: no reversible ischemia Recommend: Continue guideline directed medical therapy for chronic systolic heart failure. Otherwise, conservative cardiac management. Subjective Date of service: 10/25/20 Principal diagnosis: Acute CHF exacerbation Interval history: Patient is resting in bed and appears comfortable. Discharge planning is in process. Objective Vital Signs Temp Pulse Resp BP Pulse Ox 10/25/20 07:25 98.0 F 68 18 106/72 98 10/25/20 04:20 98.1 F 68 18 100/68 93 10/24/20 23:06 97.7 F 80 18 108/62 98 10/24/20 22:16 77 10/24/20 19:38 97.8 F 78 20 101/66 98 10/24/20 15:42 97.5 F L 74 18 99/63 98 10/24/20 14:00 67 10/24/20 12:06 87 10/24/20 12:04 96 H 10/24/20 11:30 97.8 F 75 18 111/73 95 - Physical Examination General: No Apparent Distress HEENT: Positive: PERRL Neck: Positive: trachea midline Cardiac: Positive: Reg Rate and Rhythm Lungs: Positive: Decreased Breath Sounds Extremities: Present: Other (dry) - Labs and Meds CBC 10/25/20 Range/Units 07:09 WBC 5.0 (4.5-11.0) K/mm3 RBC 3.28 L (3.65-5.03) M/mm3 Hgb 10.6 L (11.8-15.2) gm/dl Hct 31.9 L (35.5-45.6) % Plt Count 196 (140-440) K/mm3 Lymph # (Auto) 0.7 L (1.2-5.4) K/mm3 [place] # (Auto) 0.4 (0.0-0.8) K/mm3 Eos # (Auto) 0.1 (0.0-0.4) K/mm3 Baso # (Auto) 0.1 (0.0-0.1) K/mm3 Comprehensive Metabolic Panel 10/25/20 Range/Units 07:09 Sodium 139 (137-145) mmol/L Potassium 3.7 (3.6-5.0) mmol/L Chloride 102.6 (98-107) mmol/L Carbon Dioxide 27 (22-30) mmol/L BUN 23 H (9-20) mg/dL Creatinine 0.8 (0.8-1.3) mg/dL Glucose 77 (75-100) mg/dL Calcium 8.3 L (8.4-10.2) mg/dL
[2020-10-25] MEDS: DOCUSATE SODIUM 100 MG CAP PO SCH (11:15)
[2020-10-25] MEDS: SPIRONOLACTONE 25 MG TAB PO SCH (11:15)
[2020-10-25] MEDS: LISINOPRIL 5 MG TAB PO SCH (11:15)
[2020-10-25] MEDS: APIXABAN 5 MG TAB PO SCH (11:15)
[2020-10-25] MEDS: carvediloL 6.25 MG TAB PO SCH (11:15)
[2020-10-25] MEDS: oxyCODONE /ACETAMINOPHEN 5-325MG TAB PO PRN ×2 (11:15→15:20)
[2020-10-25] MEDS: FAMOTIDINE 20 MG TAB PO SCH (11:15)
[2020-10-25] MEDS: TAMSULOSIN 0.4 MG CAP PO SCH (11:15)
--- NOTE | 2020-10-25 11:18 | Discharge Summary ---
Providers - Providers Date of Admission: 10/14/20 09:20 Date of discharge: 10/25/20 Attending physician: NELLI MICHEL MD 10/14/20 13:56 Consult to Physician [CONS] Routine Comment: Consulting Provider: MARTA AKERS Physician Instructions: Reason For Exam: chf Consult to Physician [CONS] Routine Comment: Consulting Provider: MARTA AKERS Physician Instructions: Reason For Exam: chf 10/17/20 08:18 Consult to Wound/ET Nurse [CONS] Routine Reason For Exam: wound eval 10/18/20 10:50 Physical Therapy Evaluation and Treat [CONS] Routine Comment: Reason For Exam: deconditioning Primary care physician: ENVIRONMENTAL JOURNALIST Hospitalization Condition: Good Hospital course: 10/18/2020. Echocardiogram reveals right ventricular systolic function is severely reduced. LVEF 10 to 15%. Paradoxical septal motion consistent with conduction abnormality. Flattened septum consistent with right ventricular pressure and volume overload. 10/19/2020. Patient had outpatient Lexiscan thallium stress test that revealed no reversible ischemia on 07/2020. Cardiology to continue with aggressive heart failure management with intravenous diuretics. Will also consider trial of milrinone per cardiology recommendations. 10/20/2020. Physical therapy recommends SNF. Continue GDMT per cardiology recommendations. Await case management arrangement for SNF placement 10/21/2020. Patient was not able to be accepted back to [facility] because Case management reports patient is n his medicare co-days and Family will need to do a Medicaid Application before pt can return. office services coordinator also has made attempts to reach the daughter Rebeca Ohara regarding the matter with no success. Follow-up with case management regarding discharge planning. Patient is medically stable. Cardiology recommends to continue guideline directed medical therapy for chronic systolic heart failure and conservative cardiac management. 10/22/2020. Awaiting SNF placement. 10/23/2020. Awaiting SNF placement. 10/24/2020. Case management reports that the plan is for the patient to return to [facility] SNF. Discharge barriers include Medicaid application needs to be completed at [facility]. Unfortunately, the daughter resides in [place] and completing the application has been problematic. 10/25/2020: Patient will be discharged to [facility]. Continue conservative management per cardiology. Disposition: DC-30 STILL A PATIENT Final Discharge Diagnosis (Prints w/discharge instructions): Hypothyroidism. Acute systolic heart failure exacerbation/biventricular heart failure. Atrial fibrillation. Elevated bilirubin. Elevated troponin. Metabolic encephalopath y. Diabetes mellitus type 2 Time spent for discharge: 35 minutes Core Measure Documentation - Palliative Care Palliative Care/ Comfort Measures: Not Applicable - Core Measures Any of the following diagnoses?: heart failure - Heart Failure Discharge Requirements PARISH/ARB for LVSD if EF <40%: Yes Beta lizeth at discharge: Yes Exam - Physical Exam Narrative exam: General appearance: no acute distress, well-nourished EENT: PERRL, EOM intact, hearing intact, clear oral mucosa Neck: Present: supple, normal ROM Respiratory: bilateral CTA, negative: rales, rhonchi, wheezing Cardiovascular: Irregular rate/rhythm, Normal S1 & S2. No gallop, rub Extremities: no ischemia, +1 pitting edema bilaterally in lower extremities, normal temperature, normal color Abdominal: soft, no tenderness, non-distended, normal bowel sounds : Mild scrotal edema, Nuno catheter in place Integumentary: Present: clear, warm, dry no wounds, no erythema noted Psychiatric: appropriate mood/affect, poor insight Neurologic: CNII-XII intact, minimal movement of lower extremities - Constitutional Vitals: Temp Pulse Resp BP Pulse Ox 98.0 F 68 18 106/72 98 10/25/20 07:25 10/25/20 07:25 10/25/20 07:25 10/25/20 07:25 10/25/20 07:25 Plan Activity: no restrictions Diet: low salt Follow up with: PRIMARY CAREMD [Primary Care Provider] - 7 Days
[2020-10-25 12:24] VITALS: BP 116/73
== END 2020-10-25 17:31 | DRG 70 ==
LOC: ED 05:19 → 4A 09:20
PROVIDERS: ADMIT Internal Medicine; ATTEND Family Medicine
DX: G93.41 Metabolic encephalopathy (principal); I50.23 Acute on chronic systolic (congestive) heart failure; R17 Unspecified jaundice; R65.10 Systemic inflammatory response syndrome (SIRS) of non-infectious origin without acute organ dysfunction; I42.0 Dilated cardiomyopathy; I11.0 Hypertensive heart disease with heart failure; R77.8 Other specified abnormalities of plasma proteins; E03.9 Hypothyroidism, unspecified; I48.91 Unspecified atrial fibrillation; D69.6 Thrombocytopenia, unspecified; F03.90 Unspecified dementia, unspecified severity, without behavioral disturbance, psychotic disturbance, mood disturbance, and anxiety; D64.9 Anemia, unspecified; K21.9 Gastro-esophageal reflux disease without esophagitis; I25.10 Atherosclerotic heart disease of native coronary artery without angina pectoris; E11.649 Type 2 diabetes mellitus with hypoglycemia without coma; Z86.16 Personal history of COVID-19; Z86.718 Personal history of other venous thrombosis and embolism; Z79.01 Long term (current) use of anticoagulants; Z79.899 Other long term (current) drug therapy; Z79.891 Long term (current) use of opiate analgesic
CPT/HCPCS: 36415; 70450; 71045; 80048; 80053; 80061; 80320; 82140; 82565; 82962; 83880; 84443; 84484; 85025; 85027; 85610; 85730; 87040; 93005; 93306; 96365; 96375; G0378; G0480; J0696; J1815; J1940; U0003